=== PATIENT | male | born 1985 | race American Indian/Alaskan Native ===

== ENCOUNTER 2018-03-10 23:33 | Emergency (ER) | payer MEDICAID ==
[2018-03-11 08:09] LABS: Basophils # (Auto) 0.1 K/mm3 (0.0-0.1); Basophils % (Auto) 0.7 % (0.0-1.8); Eosinophils # (Auto) 0.2 K/mm3 (0.0-0.4); Hematocrit 47.6 % (35.5-45.6); Hemoglobin 15.7 gm/dl (11.8-15.2); Lymphocytes # (Auto) 2.7 K/mm3 (1.2-5.4); Lymphocytes % (Auto) 30.3 % (13.4-35.0); Mean Corpuscular HGB Conc 33 % (32-34); Mean Corpuscular Hemoglobin 27 pg (28-32); Mean Corpuscular Volume 81 fl (84-94); Monocytes # (Auto) 0.7 K/mm3 (0.0-0.8); Monocytes % (Auto) 7.7 % (0.0-7.3); Platelet Count 171 K/mm3 (140-440); Red Blood Count 5.86 M/mm3 (3.65-5.03)
[2018-03-11 08:33] LABS: BUN/Creatinine Ratio 13; Blood Urea Nitrogen 13 mg/dL (9-20); Calcium 9.5 mg/dL (8.4-10.2); Hemolysis Index 16
[2018-03-11] MEDS ORDERED: NACL 0.9% 1000 ML 1,000 ML IV ONE (11:38)
[2018-03-11] MEDS ORDERED: TORADOL IV ONE (11:38)
[2018-03-11 12:47] LABS: Amphetamine Screen,Urine PRESUMPTIVE NEGATIVE; Benzodiazepines Screen,Urine PRESUMPTIVE NEGATIVE; Bilirubin,Urine NEG (Negative); Blood,Urine NEG (Negative); Cannabinoid Screen,Urine PRESUMPTIVE NEGATIVE; Cocaine Screen,Urine PRESUMPTIVE NEGATIVE; Color,Urine Yellow (Yellow); Methadone Screen,Urine PRESUMPTIVE NEGATIVE; Mucus,Urine FEW /HPF; Opiate Screen,Urine PRESUMPTIVE NEGATIVE; Protein,Urine <15 mg/dL mg/dL (Negative); Urobilinogen,Urine < 2.0 mg/dL (<2.0)
--- NOTE | 2018-03-11 12:53 | Emergency Department Report ---
HPI - General Chief Complaint: Psych Time Seen by Provider: 03/11/18 11:12 - HPI HPI: The patient is a 32-year-old male who presents for evaluation of mental health. The patient reports recurrence of auditory hallucinations last night, mild in severity, improved from rest/sleep. He also complained of mild cramping suprapubic pain one day ago, now resolved. He states that his hallucinations resolve prior to my interview. The patient denies fever, headache, chest pain, dyspnea, vomiting, diarrhea, dysuria, hematuria, penile discharge or drainage, unexplained weight loss or weight gain, heat or cold intolerance, skin, hair, or nail changes, neuro deficits, homicidal ideations, suicidal ideations, or visual hallucinations. ED Past Medical Hx - Past Medical History Hx Psychiatric Treatment: Yes (Schizophrenia) - Surgical History Past Surgical History?: No - Social History Smoking Status: Never Smoker Substance Use Type: Alcohol - Medications Home Medications: Home Medications Medication Instructions Recorded Confirmed Last Taken Type FLUoxetine [Prozac] 10 mg PO QDAY 08/20/13 11/18/15 11/17/15 History [place] Carbonate 300 mg PO HS 08/20/13 11/18/15 11/17/15 History lamoTRIgine [Lamictal] 25 mg PO HS 08/20/13 11/18/15 11/17/15 History risperiDONE [Risperdal] 2 mg PO BID 08/20/13 11/18/15 11/17/15 History Ibuprofen [Motrin] 600 mg PO Q8H PRN #30 tablet 03/11/18 Unknown Rx ED Review of Systems ROS: Stated complaint: MH Other details as noted in HPI Constitutional: denies: fever ENT: denies: throat or neck pain Respiratory: denies: cough, shortness of breath Cardiovascular: denies: chest pain Endocrine: denies unexplained weight loss or gain Gastrointestinal: reports abdominal pain, nausea Genitourinary: denies: dysuria Musculoskeletal: denies: leg swelling Skin: denies: rash Neurological: denies: headache Hematological/Lymphatic: denies: easy bleeding or easy bruising Psych: denies sadness or hopelessness Physical Exam - Physical Exam Vital Signs: Vital Signs 03/11/18 07:48 Temperature 97.9 F Pulse Rate 101 H Respiratory 18 Rate Blood Pressure 162/87 O2 Sat by Pulse 97 Oximetry Physical Exam: General: well-nourished, well-developed, no acute distress Head: Normocephalic, atraumatic Eyes: normal sclera ENT: Mucous membranes are pale and dry Neck: No neck stiffness, no cervical adenopathy Respiratory: Breath sounds equal bilaterally, no wheezing, rales, or rhonchi Cardio: S1 and S2 present, no murmurs, rubs, gallops, capillary refill is delayed Abdomen: Normoactive bowel sounds, soft abdomen, no rigidity, no guarding or rebound tenderness Chest WALL/Back: No tenderness to palpation of the chest wall, no CVA tenderness with percussion Musc: No pitting edema Skin: No rash Neuro: no facial drooping, normal speech Psych: Normal affect, depressed mood, normal insight and behavior, no hallucinations, no suicidal or homicidal ideations ED Course Vital Signs 03/11/18 07:48 Temperature 97.9 F Pulse Rate 101 H Respiratory 18 Rate Blood Pressure 162/87 O2 Sat by Pulse 97 Oximetry ED Medical Decision Making - Lab Data Result diagrams: 03/11/18 07:56 03/11/18 07:56 - Medical Decision Making The patient was seen and examined by myself. The patient is placed on a monitor and storage bin tender and continuous pulse ox. On initial evaluation, the patient was found to be in no distress. Labs are obtained. The patient given pain medicine , and 1 L normal saline fluid was regimen of his dehydration. Lab results are grossly unremarkable. The patient is medically clear. Mental health is consulted. Mental health evaluates the patient and agrees that the patient is negative for findings concerning of acute psychosis or risk of harm to himself or others. Critical care attestation.: If time is entered above; I have spent that time in minutes in the direct care of this critically ill patient, excluding procedure time. ED Disposition Clinical Impression: Mood disorder, Dehydration, Acute suprapubic pain Disposition: DC-01 TO HOME OR SELFCARE Is pt being admited?: No Does the pt Need Aspirin: No Condition: Stable Instructions: Acute Abdominal Pain (ED), Dehydration (ED), Mood Disorders (ED) Referrals: PRIMARY CARE, [Primary Care Provider] - 3-5 Days [facility] [Outside] - 3-[address] [facility] [Outside] - 3-5 Days Time of Disposition: 12:48
[2018-03-11 13:14] VITALS: BP 117/64
== END 2018-03-11 13:16 | disposition home or self-care (01) ==
LOC: ED 23:33
DX: F39 Unspecified mood [affective] disorder (principal); E86.0 Dehydration; R10.30 Lower abdominal pain, unspecified; F20.9 Schizophrenia, unspecified; Z79.899 Other long term (current) drug therapy
CPT/HCPCS: 36415; 80048; 80307; 81001; 85025; 96361; 96374; 99284; G0480; J1885; J7030; 80320

== ENCOUNTER 2019-01-25 18:32 | Emergency (ER) | payer MEDICAID ==
[2019-01-25 18:37] VITALS: BP 136/77
--- NOTE | 2019-01-25 18:52 | Emergency Department Report ---
Chief Complaint: Upper Respiratory Infection Stated Complaint: KODI Time Seen by Provider: 01/25/19 18:48 - HPI History of Present Illness: pt presents with SOB two months he has associated cough, chest congestion, nasal congestion no fever no sick contacts he is a current every day smoker PMHx of schizophrenia, takes medication pt was seen in Dec in the ED for same sx has not been taking any OTC medications because he states his "acid reflux is bad" - Exam Vital Signs: Vital Signs 01/25/19 18:36 Temperature 97.8 F Pulse Rate 101 H Respiratory 20 Rate Blood Pressure 136/77 [Right] O2 Sat by Pulse 97 Oximetry MSE screening note: Focused history and physical exam performed. Due to findings the following was ordered: CXR ED Disposition for MSE Condition: Stable
--- NOTE | 2019-01-25 20:04 | XRay Report ---
PROCEDURE: XR CHEST ROUTINE 2V TECHNIQUE: PA and lateral views of the chest. HISTORY: cough, smoker COMPARISONS: None FINDINGS: Lines, tubes, and devices: N/A Lungs and pleura: Trachea is normal in position. Lungs are clear of infiltrate, pleural effusion, vas cular congestion, or pneumothorax. Cardiomediastinal silhouette: Cardiac and mediastinal silhouettes are unremarkable. Other: Bony structures are intact. IMPRESSION: No acute cardiopulmonary process seen. . This document is electronically signed by Madhavi Tripp MD., January 25 2019 08:02:14 PM ET
[2019-01-25] MEDS ORDERED: IBUPROFEN PO ONE (22:00)
[2019-01-25] MEDS ORDERED: AUGMENTIN 875 MG PO ONE (22:00)
[2019-01-25] MEDS ORDERED: DECADRON IM ONE (22:00)
--- NOTE | 2019-01-25 22:10 | Emergency Department Report ---
- General Chief Complaint: Upper Respiratory Infection Stated Complaint: KODI Time Seen by Provider: 01/25/19 18:48 Source: patient, EMS Mode of arrival: Ambulatory Limitations: No Limitations - History of Present Illness Initial Comments: pt presents with SOB two months he has associated cough, chest congestion, nasal congestion no fever no sick contacts he is a current every day smoker PMHx of schizophrenia, takes medication pt was seen in Dec in the ED for same sx has not been taking any OTC medications because he states his "acid reflux is bad" MD Complaint: fever, cough, sore throat, rhinorrhea, nasal congestion, sinus pain Onset/Timin -: days(s) Severity: moderate Severity scale (0 -10): 5 Consistency: constant Improves With: nothing Worsens With: activity Context: sick contacts Associated Symptoms: fever, chills, rhinorrhea, nasal congestion, sore throat, cough Treatments Prior to Arrival: none - Related Data Home Medications Medication Instructions Recorded Confirmed Last Taken FLUoxetine [Prozac] 10 mg PO QDAY 08/20/13 11/18/15 11/17/15 [place] Carbonate 300 mg PO HS 08/20/13 11/18/15 11/17/15 lamoTRIgine [Lamictal] 25 mg PO HS 08/20/13 11/18/15 11/17/15 risperiDONE [Risperdal] 2 mg PO BID 08/20/13 11/18/15 11/17/15 Previous Rx's Medication Instructions Recorded Last Taken Type Ibuprofen [Motrin] 600 mg PO Q8H PRN #30 tablet 03/11/18 Unknown Rx Amoxicillin [Amoxicillin TAB] 875 mg PO BID #14 tablet 12/25/18 Unknown Rx predniSONE [Prednisone] 50 mg PO QAM #5 tablet 12/25/18 Unknown Rx ALBUTEROL Inhaler(NF) [VENTOLIN 2 puff IH Q4H PRN #1 inha 01/25/19 Unknown Rx Inhaler(NF)] Amoxicillin/Potassium Clav 1 each PO BID 10 Days #20 tablet 01/25/19 Unknown Rx [Augmentin 875-125 Tablet] Benzocaine/Menth/Cetylpyrd 1 each MM Q2H PRN #3 packet 01/25/19 Unknown Rx [Cepacol X Strength] Fluticasone [Flonase] 1 spray NS QDAY #1 bottle 01/25/19 Unknown Rx Ibuprofen 800 mg PO TID PRN #30 tablet 01/25/19 Unknown Rx diphenhydrAMINE [Benadryl CAP] 25 mg PO Q6HR PRN #30 capsule 01/25/19 Unknown Rx Allergies Allergy/AdvReac Type Severity Reaction Status Date / Time No Known Allergies Allergy Verified 01/25/19 18:32 ED Review of Systems ROS: Stated complaint: KODI Other details as noted in HPI Constitutional: chills, fever, malaise ENT: ear pain, throat pain, congestion Respiratory: cough, wheezing. denies: shortness of breath Cardiovascular: denies: chest pain, palpitations Endocrine: no symptoms reported Gastrointestinal: denies: abdominal pain, nausea, diarrhea Genitourinary: denies: urgency, dysuria Musculoskeletal: denies: back pain, joint swelling, arthralgia Skin: denies: rash, lesions Neurological: denies: headache, weakness, paresthesias Psychiatric: denies: anxiety, depression Hematological/Lymphatic: denies: easy bleeding, easy bruising ED Past Medical Hx - Past Medical History Hx Psychiatric Treatment: Yes (Schizophrenia, Bipolar) - Surgical History Past Surgical History?: No - Social History Smoking Status: Current Every Day Smoker Substance Use Type: Alcohol - Medications Home Medications: Home Medications Medication Instructions Recorded Confirmed Last Taken Type FLUoxetine [Prozac] 10 mg PO QDAY 08/20/13 11/18/15 11/17/15 History [place] Carbonate 300 mg PO HS 08/20/13 11/18/15 11/17/15 History lamoTRIgine [Lamictal] 25 mg PO HS 08/20/13 11/18/15 11/17/15 History risperiDONE [Risperdal] 2 mg PO BID 08/20/13 11/18/15 11/17/15 History Ibuprofen [Motrin] 600 mg PO Q8H PRN #30 tablet 03/11/18 Unknown Rx Amoxicillin [Amoxicillin TAB] 875 mg PO BID #14 tablet 12/25/18 Unknown Rx predniSONE [Prednisone] 50 mg PO QAM #5 tablet 12/25/18 Unknown Rx ALBUTEROL Inhaler(NF) [VENTOLIN 2 puff IH Q4H PRN #1 inha 01/25/19 Unknown Rx Inhaler(NF)] Amoxicillin/Potassium Clav 1 each PO BID 10 Days #20 tablet 01/25/19 Unknown Rx [Augmentin 875-125 Tablet] Benzocaine/Menth/Cetylpyrd 1 each MM Q2H PRN #3 packet 01/25/19 Unknown Rx [Cepacol X Strength] Fluticasone [Flonase] 1 spray NS QDAY #1 bottle 01/25/19 Unknown Rx Ibuprofen 800 mg PO TID PRN #30 tablet 01/25/19 Unknown Rx diphenhydrAMINE [Benadryl CAP] 25 mg PO Q6HR PRN #30 capsule 01/25/19 Unknown Rx ED Physical Exam - General Limitations: No Limitations General appearance: alert, in no apparent distress - Head Head exam: Present: atraumatic, normocephalic - Eye Eye exam: Present: normal appearance, PERRL, EOMI Pupils: Present: normal accommodation - Expanded ENT Exam Expanded Ear exam: Present: normal external inspection Mouth exam: Present: normal external inspection. Absent: trismus Throat exam: Positive: tonsillar erythema, tonsillomegaly, tonsillar exudate, other (uvula midline mild white exudate no lesions no stridor no wheezing ). Negative: R peritonsillar mass, L peritonsillar mass - Neck Neck exam: Present: normal inspection, full ROM, lymphadenopathy. Absent: tenderness, meningismus, thyromegaly - Expanded Neck Exam Expanded Neck exam: Absent: tenderness, midline deformity, anterior neck swelling, thy roid mass, carotid bruit, tracheal deviation - Respiratory Respiratory exam: Present: normal lung sounds bilaterally, chest wall tenderness. Absent: respiratory distress, wheezes, stridor - Cardiovascular Cardiovascular Exam: Present: regular rate, normal rhythm, normal heart sounds. Absent: systolic murmur, diastolic murmur, rubs, gallop - GI/Abdominal GI/Abdominal exam: Present: soft, normal bowel sounds. Absent: tenderness, rebound, bruit, hernia - Rectal Rectal exam: Present: deferred - exam: Present: normal inspection - Extremities Exam Extremities exam: Present: normal inspection - Back Exam Back exam: Present: normal inspection, full ROM. Absent: tenderness, CVA tenderness (R), CVA tenderness (L), muscle spasm, rash noted - Neurological Exam Neurological exam: Present: alert, oriented X3, CN II-XII intact, normal gait, reflexes normal. Absent: motor sensory deficit - Psychiatric Psychiatric exam: Present: normal affect, normal mood - Skin Skin exam: Present: warm, dry, intact, normal color. Absent: rash ED Course Vital Signs 01/25/19 01/25/19 18:36 18:47 Temperature 97.8 F 97.8 F Pulse Rate 101 H 101 H Respiratory 20 20 Rate Blood Pressure 136/77 Blood Pressure 136/77 [Right] O2 Sat by Pulse 97 97 Oximetry ED Medical Decision Making - Radiology Data Radiology results: report reviewed, image reviewed normal cxr no infiltarates no opacities - Medical Decision Making this is Sinusitis phayrngitis plan Augment, ibuprofen, cepacol, Flonase follow up with pcp pin 2-3 days given referral to [facility] pt verbalizeda agreement and understanding of same. Critical care attestation.: If time is entered above; I have spent that time in minutes in the direct care of this critically ill patient, excluding procedure time. ED Disposition Clinical Impression: URI, acute Sinusitis Qualifiers: Sinusitis location: maxillary Chronicity: acute Recurrence: non-recurrent Qualified Code(s): J01.00 - Acute maxillary sinusitis, unspecified Disposition: TO HOME OR SELFCARE Is pt being admited?: No Does the pt Need Aspirin: No Condition: Stable Instructions: Sinusitis (ED), Upper Respiratory Infection (ED) Prescriptions: Amoxicillin/Potassium Clav [Augmentin 875-125 Tablet] 1 each PO BID 10 Days #20 tablet diphenhydrAMINE [Benadryl CAP] 25 mg PO Q6HR PRN #30 capsule PRN Reason: sinus congestion Benzocaine/Menth/Cetylpyrd [Cepacol X Strength] 1 each MM Q2H PRN #3 packet PRN Reason: Throat Pain Fluticasone [Flonase] 1 spray NS QDAY #1 bottle Ibuprofen 800 mg PO TID PRN #30 tablet PRN Reason: pain ALBUTEROL Inhaler(NF) [VENTOLIN Inhaler(NF)] 2 puff IH Q4H PRN #1 inha PRN Reason: shortness of breath wheezing Referrals: PRIMARY CARE, [Primary Care Provider] - 3-5 Days [facility] [Outside] - 3-5 Days Forms: Work/School Release Form(ED) Time of Disposition: 22:15
== END 2019-01-25 22:35 | disposition home or self-care (01) ==
LOC: ED 18:32
DX: J01.00 Acute maxillary sinusitis, unspecified (principal); F17.200 Nicotine dependence, unspecified, uncomplicated; F31.9 Bipolar disorder, unspecified; F20.9 Schizophrenia, unspecified; Z79.899 Other long term (current) drug therapy
CPT/HCPCS: 71046; 96372; 99284; J1100

== ENCOUNTER 2019-02-07 20:04 | Emergency (ER) | payer MEDICAID ==
[2019-02-07 22:44] VITALS: BP 146/84
--- NOTE | 2019-02-07 23:27 | XRay Report ---
PROCEDURE: XR CHEST ROUTINE 2V TECHNIQUE: PA and lateral chest radiographs were obtained. HISTORY: KODI COMPARISONS: None. FINDINGS: Heart: Normal. Mediastinum/Vessels: Normal. Lungs/Pleural space: Normal. Bony thorax: No acute osseous abnormality. IMPRESSION: Normal examination. This document is electronically signed by Piedad Hedrick DO., February 07 2019 11:25:09 PM ET
--- NOTE | 2019-02-08 01:09 | Emergency Department Report ---
HPI - General Chief Complaint: Dyspnea/Respdistress Time Seen by Provider: 02/08/19 01:05 - HPI HPI: 33-year-old -Japanese male presents to the emergency department with a complaint of a 3 month history of some chest congestion. Specifically the p fatmata says that he has mucus in his throat that he has difficulty getting out. He was here about 2 weeks ago and was placed on an inhaler, some antibiotics, Flonase and cough drops. He says that he use that with some improvement but the symptoms returned. He says that he has a primary care physician and that he has seen them. He was told to just take the medications prescribed by this emergen cy department. He is a tobacco smoker but denies any illicit drug use. ED Past Medical Hx - Past Medical History Previous Medical History?: Yes Hx Psychiatric Treatment: Yes (Schizophrenia, Bipolar) - Surgical History Past Surgical History?: No - Social History Smoking Status: Current Every Day Smoker Substance Use Type: None - Medications Home Medications: Home Medications Medication Instructions Recorded Confirmed Last Taken Type FLUoxetine [Prozac] 10 mg PO QDAY 08/20/13 11/18/15 11/17/15 History [place] Carbonate 300 mg PO HS 08/20/13 11/18/15 11/17/15 History lamoTRIgine [Lamictal] 25 mg PO HS 08/20/13 11/18/15 11/17/15 History risperiDONE [Risperdal] 2 mg PO BID 08/20/13 11/18/15 11/17/15 History Ibuprofen [Motrin] 600 mg PO Q8H PRN #30 tablet 03/11/18 Unknown Rx Amoxicillin [Amoxicillin TAB] 875 mg PO BID #14 tablet 12/25/18 Unknown Rx predniSONE [Prednisone] 50 mg PO QAM #5 tablet 12/25/18 Unknown Rx Amoxicillin/Potassium Clav 1 each PO BID 10 Days #20 tablet 01/25/19 Unknown Rx [Augmentin 875-125 Tablet] Ibuprofen 800 mg PO TID PRN #30 tablet 01/25/19 Unknown Rx diphenhydrAMINE [Benadryl CAP] 25 mg PO Q6HR PRN #30 capsule 01/25/19 Unknown Rx ALBUTEROL Inhaler(NF) [VENTOLIN 2 puff IH Q4H PRN #1 inha 02/08/19 Unknown Rx Inhaler(NF)] Benzocaine/Mentho [Cepacol X 1 each MM Q2H PRN #3 packet 02/08/19 Unknown Rx Strength] Fluticasone [Flonase] 1 spray NS QDAY #1 bottle 02/08/19 Unknown Rx ED Review of Systems ROS: Stated complaint: KODI Other details as noted in HPI Comment: All other systems reviewed and negative Constitutional: denies: chills, fever Eyes: denies: eye pain, vision change ENT: congestion. denies: ear pain, throat pain Respiratory: cough. denies: orthopnea Cardiovascular: denies: chest pain, edema Gastrointestinal: denies: abdominal pain, vomiting Genitourinary: denies: dysuria, discharge Musculoskeletal: denies: back pain, arthralgia Skin: denies: rash, lesions Neurological: denies: headache, weakness Physical Exam - Physical Exam Vital Signs: Vital Signs 02/07/19 22:41 Temperature 97.9 F Pulse Rate 94 H Respiratory 16 Rate Blood Pressure 146/84 O2 Sat by Pulse 97 Oximetry Physical Exam: GENERAL: The patient is well-developed well-nourished. HEENT: Normocephalic. Atraumatic. Patient has moist mucous membranes. Boggy nasal mucosa. EYES: Extraocular motions are intact. Pupils are equal and reactive to light bilaterally. NECK: Supple. Trachea is midline. CHEST/LUNGS: Clear to auscultation. There is no respiratory distress noted. HEART/CARDIOVASCULAR: Regular. There is no tachycardia. There is no obvious murmur. ABDOMEN: There is no abdominal distention. SKIN: Skin is warm and dry. NEURO: The patient is awake, alert, and oriented. The patient is cooperative. The patient has no focal neurologic deficits. The patient has normal speech. MUSCULOSKELETAL: There is no tenderness or deformity. There is no evidence of acute injury. ED Course Vital Signs 02/07/19 22:41 Temperature 97.9 F Pulse Rate 94 H Respiratory 16 Rate Blood Pressure 146/84 O2 Sat by Pulse 97 Oximetry ED Medical Decision Making - Radiology Data Radiology results: image reviewed interpreted by me: Chest x-ray does not show any pneumothorax, pleural effusion, pneumonia or obvious focal consolidation. - Medical Decision Making Patient presents to the emergency department with a continuation of some head and chest congestion, mucus in the throat, and occasional cough. Vital signs stable including being afebrile. Last time the patient was here he was treated for a sinusitis and URI. He may still have symptoms of the URI but they could also be secondary to environmental allergies. Heart and lungs sounds are normal to auscultation. He has good follow-up with primary care. His chest x-ray did not show any pneumonia, pleural effusions, pneumothorax, focal consolidation, or any other acute process. Patient will be given another prescription for an albuterol inhaler, Flonase and the cough lozenges. Instructed to follow up with primary care and return to the emergency Department with any worsening of his symptoms or any acute distress. - Differential Diagnosis URI, sinusitis, pneumonia Critical Care Time: No Critical care attestation.: If time is entered above; I have spent that time in minutes in the direct care of this critically ill patient, excluding procedure time. ED Disposition Clinical Impression: Chest congestion, URI, acute Disposition: DC- TO HOME OR SELFCARE Is pt being admited?: No Condition: Stable Instructions: Upper Respiratory Infection (ED), Viral Syndrome (ED) Additional Instructions: Please follow-up with your primary care physician in the next few days. Return to the emergency Department with any worsening of symptoms or any acute distress. Prescriptions: Benzocaine/Mentho [Cepacol X Strength] 1 each MM Q2H PRN #3 packet PRN Reason: Throat Pain Fluticasone [Flonase] 1 spray NS QDAY #1 bottle ALBUTEROL Inhaler(NF) [VENTOLIN Inhaler(NF)] 2 puff IH Q4H PRN #1 inha PRN Reason: shortness of breath wheezing Referrals: JAZZY CONTRERAS MD [Primary Care Provider] - 2-3 Days Time of Disposition: 01:08
== END 2019-02-08 01:10 | disposition home or self-care (01) ==
LOC: ED 20:04
DX: J06.9 Acute upper respiratory infection, unspecified (principal); F31.9 Bipolar disorder, unspecified; F20.9 Schizophrenia, unspecified; F17.200 Nicotine dependence, unspecified, uncomplicated
CPT/HCPCS: 71046

== ENCOUNTER 2019-02-09 11:48 | Emergency (ER) | payer MEDICAID ==
[2019-02-09 11:59] VITALS: BP 136/60
--- NOTE | 2019-02-09 12:05 | Emergency Department Report ---
Blank Doc - Documentation Documentation: 33 y o male returns to Ed cc of nasal congestion and feeling stuffed up states he was given cough drops and nasal spray no relief. denies cp,sob, throat pain needs mucinex,decongestants, ACC evaluate
--- NOTE | 2019-02-09 12:51 | Emergency Department Report ---
Minor Respiratory - HPI Chief Complaint: Upper Respiratory Infection Stated Complaint: SOB Time Seen by Provider: 02/09/19 11:56 Duration: 1 Day Severity: mild Minor Respiratory: Yes Rhinorrhea, Yes Able to Tolerate Fluids, No Sore Throat, No Ear Pain, No Cough, No Sick Contacts, No Hemoptysis, No Chest Pain, No Shortness of Breath, No Fever Other History: This is a 33-year-old male nontoxic, well nourished in appearance, no acute signs of distress presents to the ED with c/o of rhinorrhea and nasal congestion x1 day. Patient denies any cough. Patient denies any recent travels, long car, recent hospital stays. Patient denies any calf pain or calf tenderness. Patient denies any chest pain, short of breath, fever, chills, nausea, vomiting, hemoptysis, numbness, tingling, headache or stiff neck. Patient stated has seasional allergies. ED Review of Systems ROS: Stated complaint: SOB Other details as noted in HPI Constitutional: denies: chills, fever Eyes: denies: eye pain, eye discharge, vision change ENT: congestion. denies: ear pain, throat pain Respiratory: denies: cough, shortness of breath, wheezing Cardiovascular: denies: chest pain, palpitations Endocrine: no symptoms reported Gastrointestinal: denies: abdominal pain, nausea, diarrhea Genitourinary: denies: urgency, dysuria Musculoskeletal: denies: back pain, joint swelling, arthralgia Skin: denies: rash, lesions Neurological: denies: headache, weakness, paresthesias Psychiatric: denies: anxiety, depression Hematological/Lymphatic: denies: easy bleeding, easy bruising ED Past Medical Hx - Past Medical History Previous Medical History?: Yes Hx Psychiatric Treatment: Yes (Schizophrenia, Bipolar) - Social History Smoking Status: Current Every Day Smoker - Medications Home Medications: Home Medications Medication Instructions Recorded Confirmed Last Taken Type FLUoxetine [Prozac] 10 mg PO QDAY 08/20/13 11/18/15 11/17/15 History [place] Carbonate 300 mg PO HS 08/20/13 11/18/15 11/17/15 History lamoTRIgine [Lamictal] 25 mg PO HS 08/20/13 11/18/15 11/17/15 History risperiDONE [Risperdal] 2 mg PO BID 08/20/13 11/18/15 11/17/15 History Ibuprofen [Motrin] 600 mg PO Q8H PRN #30 tablet 03/11/18 Unknown Rx Amoxicillin [Amoxicillin TAB] 875 mg PO BID #14 tablet 12/25/18 Unknown Rx predniSONE [Prednisone] 50 mg PO QAM #5 tablet 12/25/18 Unknown Rx Amoxicillin/Potassium Clav 1 each PO BID 10 Days #20 tablet 01/25/19 Unknown Rx [Augmentin 875-125 Tablet] Ibuprofen 800 mg PO TID PRN #30 tablet 01/25/19 Unknown Rx diphenhydrAMINE [Benadryl CAP] 25 mg PO Q6HR PRN #30 capsule 01/25/19 Unknown Rx ALBUTEROL Inhaler(NF) [VENTOLIN 2 puff IH Q4H PRN #1 inha 02/08/19 Unknown Rx Inhaler(NF)] Benzocaine/Mentho [Cepacol X 1 each MM Q2H PRN #3 packet 02/08/19 Unknown Rx Strength] Fluticasone [Flonase] 1 spray NS QDAY #1 bottle 02/08/19 Unknown Rx Container,Empty [Nasal [place] 1 each MC DAILY #1 bottle 02/09/19 Unknown Rx Bottle] Fluticasone [Flonase] 1 spray NS QDAY #1 bottle 02/09/19 Unknown Rx Loratadine [Claritin] 10 mg PO DAILY #30 tablet 02/09/19 Unknown Rx Minor Respiratory Exam - Exam General: Vital signs noted. No distress. Alert and acting appropriately. HEENT: Yes Moist Mucous Membranes, Yes Rhinorrhea, No Pharyngeal Erythema, No Pharyngeal Exudates, No Conjuctival Injection, No Frontal Tenderness, No Maxillary Tenderness Ear: Neither TM Bulge, Neither TM Erythema, Neither EAC Pain, Neither EAC Discharge Neck: Yes Supple, No Adenopathy Lungs: Yes Good Air Exchange, No Wheezes, No [place], No Stridor, No Cough, No Labored Respirations, No Retractions, No Use of Accessory Muscles, No Other Abnormal Lung Sounds Heart: Yes Regular, No Murmur Abdomen: Yes Normal Bowel Sounds, No Tenderness, No Peritoneal Signs Skin: No Rash, No Edema Neurologic: Alert and oriented, no deficits. Musculoskeletal: Unremarkable. ED Course Vital Signs 02/09/19 11:56 Temperature 97.4 F L Pulse Rate 81 Respiratory 18 Rate Blood Pressure 136/60 O2 Sat by Pulse 98 Oximetry - Reevaluation(s) Reevaluation #1: 02/09/19 12:48 Patient is speaking in full sentences with no signs of distress noted. Critical care attestation.: If time is entered above; I have spent that time in minutes in the direct care of this critically ill patient, excluding procedure time. ED Disposition Clinical Impression: Nasal congestion Allergic rhinitis Qualifiers: Allergic rhinitis trigger: pollen Allergic rhinitis seasonality: seasonal Qualified Code(s): J30.1 - Allergic rhinitis due to pollen Disposition: DC-01 TO HOME OR SELFCARE Is pt being admited?: No Does the pt Need Aspirin: No Condition: Stable Instructions: Allergic Rhinitis (ED) Additional Instructions: Follow-up with a primary care doctor in 3-5 days or if symptoms worsen and continue return to emergency room as soon as possible. Prescriptions: Loratadine [Claritin] 10 mg PO DAILY #30 tablet Fluticasone [Flonase] 1 spray NS QDAY #1 bottle Container,Empty [Nasal [place] Bottle] 1 each MC DAILY #1 bottle Referrals: PRIMARY CAREMD [Primary Care Provider] - 3-5 Days CHIQUITA HOOVER MD [Staff Physician] - 3-5 Days [facility]Note 3] [Outside] - 3-5 Days [facility] [Outside] - 3-5 Days Forms: Work/School Release Form(ED)
== END 2019-02-09 13:04 | disposition home or self-care (01) ==
LOC: ED 11:48
DX: J30.1 Allergic rhinitis due to pollen (principal); F20.9 Schizophrenia, unspecified; F31.9 Bipolar disorder, unspecified; F17.200 Nicotine dependence, unspecified, uncomplicated

== ENCOUNTER 2019-02-17 14:27 | Emergency (ER) | payer MEDICAID ==
--- NOTE | 2019-02-17 15:27 | Emergency Department Report ---
Blank Doc - Documentation Documentation: This is a 33-year-old male that presents with URI symptoms. This initial assessment/diagnostic orders/clinical plan/treatment(s) is/are subject to change based on patient's health status, clinical progression and re- assessment by fellow clinical providers in the ED. Further treatment and workup at subsequent clinical providers discretion. Patient/guardians urged not to elope from the ED as their condition may be serious if not clinically assessed and managed. Initial orders include: 1- Patient sent to [facility] for further evaluation and treatment 2- CXR
[2019-02-17 15:32] VITALS: BP 140/89
--- NOTE | 2019-02-17 16:59 | XRay Report ---
PROCEDURE: XR CHEST ROUTINE 2V TECHNIQUE: Frontal and lateral views of the chest HISTORY: cough COMPARISONS: 02/07/2019 FINDINGS: The cardiomediastinal silhouette is normal in appearance. The lungs are clear without focal consolidation. No pleural effusion or pneumothorax. No acute bony or soft tissue abnormality. IMPRESSION: No acute cardiopulmonary disease. This document is electronically signed by Yanely Leon MD., February 17 2019 04:57:37 PM ET
[2019-02-17] MEDS ORDERED: DECADRON IM ONE (19:28)
[2019-02-17] MEDS ORDERED: ATROVENT IH ONE (19:28)
[2019-02-17] MEDS ORDERED: PROVENTIL IH ONE (19:28)
--- NOTE | 2019-02-17 21:31 | Emergency Department Report ---
- General Chief Complaint: Upper Respiratory Infection Stated Complaint: DIFFICULTY BREATHING Time Seen by Provider: 02/17/19 15:27 Source: patient, EMS Mode of arrival: Ambulatory Limitations: No Limitations - History of Present Illness Initial Comments: This is a 33-year-old male nontoxic, well nourished in appearance, no acute signs of distress presents to the ED with c/o of productive cough, rhinorrhea, nasal congestion x2 days. Patient describes productive cough as yellow mucus production. Patient also stated has some shortness of breathe. Patient denies any recent travels, long car, recent hospital stays. Patient denies any calf pain or calf tenderness. Patient denies any chest pain, fever, chills, nausea, vomiting, hemoptysis, numbness, tingling, headache or stiff neck. Patient denies any drug allergies or significant past medical history. MD Complaint: cough, rhinorrhea, nasal congestion -: days(s) (2) Severity: mild Severity scale (0 -10): 8 Quality: aching Consistency: constant Improves With: nothing Worsens With: nothing Associated Symptoms: rhinorrhea, nasal congestion, cough, shortness of breath. denies: fever, chills, myalgias, diaphoresis, headache, sore throat, stiff neck, chest pain, abdominal pain, nausea, vomiting, diarrhea, dysuria, rash, confusion, right sweats, weight loss, epistaxis, hoarseness, ear pain Treatments Prior to Arrival: none - Related Data Home Medications Medication Instructions Recorded Confirmed Last Taken FLUoxetine [Prozac] 10 mg PO QDAY 08/20/13 11/18/15 11/17/15 [place] Carbonate 300 mg PO HS 08/20/13 11/18/15 11/17/15 lamoTRIgine [Lamictal] 25 mg PO HS 08/20/13 11/18/15 11/17/15 risperiDONE [Risperdal] 2 mg PO BID 08/20/13 11/18/15 11/17/15 Previous Rx's Medication Instructions Recorded Last Taken Type Ibuprofen [Motrin] 600 mg PO Q8H PRN #30 tablet 03/11/18 Unknown Rx Amoxicillin [Amoxicillin TAB] 875 mg PO BID #14 tablet 12/25/18 Unknown Rx predniSONE [Prednisone] 50 mg PO QAM #5 tablet 12/25/18 Unknown Rx Amoxicillin/Potassium Clav 1 each PO BID 10 Days #20 tablet 03/16/19 Unknown Rx [Augmentin 875-125 Tablet] Ibuprofen 800 mg PO TID PRN #30 tablet 01/25/19 Unknown Rx diphenhydrAMINE [Benadryl CAP] 25 mg PO Q6HR PRN #30 capsule 01/25/19 Unknown Rx ALBUTEROL Inhaler(NF) [VENTOLIN 2 puff IH Q4H PRN #1 inha 02/08/19 Unknown Rx Inhaler(NF)] Benzocaine/Mentho [Cepacol X 1 each MM Q2H PRN #3 packet 02/08/19 Unknown Rx Strength] Fluticasone [Flonase] 1 spray NS QDAY #1 bottle 02/08/19 Unknown Rx Container,Empty [Nasal [place] 1 each MC DAILY #1 bottle 02/09/19 Unknown Rx Bottle] Fluticasone [Flonase] 1 spray NS QDAY #1 bottle 02/09/19 Unknown Rx Loratadine [Claritin] 10 mg PO DAILY #30 tablet 02/09/19 Unknown Rx ALBUTEROL Inhaler(NF) [VENTOLIN 2 puff IH Q4-6H PRN #1 inha 02/17/19 Unknown Rx Inhaler(NF)] Azithromycin [Zithromax Z-BERNICE] 250 mg PO DAILY #6 tablet 02/17/19 Unknown Rx Ibuprofen [Motrin] 600 mg PO Q8H PRN #20 tablet 02/17/19 Unknown Rx Prednisone [predniSONE 10 mg 10 mg PO .TAPER #1 tab.ds.pk 02/17/19 Unknown Rx (6-Day Pack, 21 Tabs)] Allergies Allergy/AdvReac Type Severity Reaction Status Date / Time No Known Allergies Allergy Verified 01/25/19 18:32 ED Review of Systems ROS: Stated complaint: DIFFICULTY BREATHING Other details as noted in HPI Constitutional: denies: chills, fever Eyes: denies: eye pain, eye discharge, vision change ENT: congestion. denies: ear pain, throat pain Respiratory: cough, shortness of breath. denies: wheezing Cardiovascular: denies: chest pain, palpitations Endocrine: no symptoms reported Gastrointestinal: denies: abdominal pain, nausea, diarrhea Genitourinary: denies: urgency, dysuria Musculoskeletal: denies: back pain, joint swelling, arthralgia Skin: denies: rash, lesions Neurological: denies: headache, weakness, paresthesias Psychiatric: denies: anxiety, depression Hematological/Lymphatic: denies: easy bleeding, easy bruising ED Past Medical Hx - Past Medical History Previous Medical History?: Yes Hx Psychiatric Treatment: Yes (Schizophrenia, Bipolar) - Social History Smoking Status: Never Smoker Substance Use Type: None - Medications Home Medications: Home Medications Medication Instructions Recorded Confirmed Last Taken Type FLUoxetine [Prozac] 10 mg PO QDAY 08/20/13 11/18/15 11/17/15 History [place] Carbonate 300 mg PO HS 08/20/13 11/18/15 11/17/15 History lamoTRIgine [Lamictal] 25 mg PO HS 08/20/13 11/18/15 11/17/15 History risperiDONE [Risperdal] 2 mg PO BID 08/20/13 11/18/15 11/17/15 History Ibuprofen [Motrin] 600 mg PO Q8H PRN #30 tablet 03/11/18 Unknown Rx Amoxicillin [Amoxicillin TAB] 875 mg PO BID #14 tablet 12/25/18 Unknown Rx predniSONE [Prednisone] 50 mg PO QAM #5 tablet 12/25/18 Unknown Rx Amoxicillin/Potassium Clav 1 each PO BID 10 Days #20 tablet 01/25/19 Unknown Rx [Augmentin 875-125 Tablet] Ibuprofen 800 mg PO TID PRN #30 tablet 01/25/19 Unknown Rx diphenhydrAMINE [Benadryl CAP] 25 mg PO Q6HR PRN #30 capsule 01/25/19 Unknown Rx ALBUTEROL Inhaler(NF) [VENTOLIN 2 puff IH Q4H PRN #1 inha 02/08/19 Unknown Rx Inhaler(NF)] Benzocaine/Mentho [Cepacol X 1 each MM Q2H PRN #3 packet 02/08/19 Unknown Rx Strength] Fluticasone [Flonase] 1 spray NS QDAY #1 bottle 02/08/19 Unknown Rx Container,Empty [Nasal [place] 1 each MC DAILY #1 bottle 02/09/19 Unknown Rx Bottle] Fluticasone [Flonase] 1 spray NS QDAY #1 bottle 02/09/19 Unknown Rx Loratadine [Claritin] 10 mg PO DAILY #30 tablet 02/09/19 Unknown Rx ALBUTEROL Inhaler(NF) [VENTOLIN 2 puff IH Q4-6H PRN #1 inha 02/17/19 Unknown Rx Inhaler(NF)] Azithromycin [Zithromax Z-BERNICE] 250 mg PO DAILY #6 tablet 02/17/19 Unknown Rx Ibuprofen [Motrin] 600 mg PO Q8H PRN #20 tablet 02/17/19 Unknown Rx Prednisone [predniSONE 10 mg 10 mg PO .TAPER #1 tab.ds.pk 02/17/19 Unknown Rx (6-Day Pack, 21 Tabs)] ED Physical Exam - General Limitations: No Limitations General appearance: alert, in no apparent distress - Head Head exam: Present: atraumatic, normocephalic - Eye Eye exam: Present: normal appearance - Neck Neck exam: Present: normal inspection, full ROM. Absent: tenderness, meningismus, lymphadenopathy - Respiratory Respiratory exam: Present: normal lung sounds bilaterally, decreased breath sounds (bilateral upper lobes). Absent: respiratory distress, wheezes, rales, rhonchi, stridor, chest wall tenderness, accessory muscle use, prolonged expiratory - Cardiovascular Cardiovascular Exam: Present: regular rate, normal rhythm, normal heart sounds. Absent: irregular rhythm, systolic murmur, diastolic murmur, rubs, gallop - Rectal Rectal exam: Present: deferred - Extremities Exam Extremities exam: Present: normal inspection, full ROM - Back Exam Back exam: Present: normal inspection, full ROM. Absent: tenderness, CVA tenderness (R), CVA tenderness (L), muscle spasm, paraspinal tenderness, vertebral tenderness, rash noted - Neurological Exam Neurological exam: Present: alert, oriented X3 - Psychiatric Psychiatric exam: Present: normal affect, normal mood - Skin Skin exam: Present: warm, dry, intact, normal color. Absent: rash ED Course Vital Signs 02/17/19 15:31 Temperature 98 F Pulse Rate 96 H Respiratory 16 Rate Blood Pressure 140/89 O2 Sat by Pulse 95 Oximetry - Reevaluation(s) Reevaluation #1: 02/17/19 21:32 Patient is speaking in full sentences with no signs of distress noted. ED Medical Decision Making - Medical Decision Making This is a 33-year-old male that presents with bronchitis. Patient is stable and was examined by me. Chest x-ray has been obtained and dictated by radiologist with normal exam. Patient is notified of x-ray results with no questions noted. Due to patient having symptoms of upper respiratory infection and worsening I will treat patient empirically with zpak. Patient was instructed to increase hydration, rest and take Motrin for fever episodes. Patient received a breathing treatment in the ER as well as Decadron IM. Posttreatment patient eventually has resolved and subsided. Breath sounds are clear and normal. Vitals stable. Patient is nonfebrile and normal heart rate. Patient was instruct ed Follow-up with a primary care doctor in 3-5 days or if symptoms worsen and continue return to emergency room as soon as possible. At time time of discharge, the patient does not seem toxic or ill in appearance. No acute signs of distress noted. Patient agrees to discharge treatment plan of care. No further questions noted by the patient. Critical care attestation.: If time is entered above; I have spent that time in minutes in the direct care of this critically ill patient, excluding procedure time. ED Disposition Clinical Impression: Bronchitis Disposition: DC-01 TO HOME OR SELFCARE Is pt being admited?: No Does the pt Need Aspirin: No Condition: Stable Instructions: Acute Bronchitis (ED) Additional Instructions: Follow-up with a primary care doctor in 3-5 days or if symptoms worsen and continue return to emergency room as soon as possible. Prescriptions: Ibuprofen [Motrin] 600 mg PO Q8H PRN #20 tablet PRN Reason: Pain Prednisone [predniSONE 10 mg (6-Day Pack, 21 Tabs)] 10 mg PO .TAPER #1 tab.ds.pk ALBUTEROL Inhaler(NF) [VENTOLIN Inhaler(NF)] 2 puff IH Q4-6H PRN #1 inha PRN Reason: Wheezing Azithromycin [Zithromax Z-BERNICE] 250 mg PO DAILY #6 tablet Referrals: PRIMARY CAREMD [Referring] - 3-5 Days CHIQUITA HOOVER MD [Staff Physician] - 3-5 Days [facility] [Outside] - 3-5 Days [facility] [Outside] - 3-5 Days Forms: Work/School Release Form(ED)
== END 2019-02-17 21:40 | disposition home or self-care (01) ==
LOC: ED 14:27
DX: J40 Bronchitis, not specified as acute or chronic (principal)
CPT/HCPCS: 71046; 94640; 96372; 99284; J1100

== ENCOUNTER 2019-02-24 22:39 | Emergency (ER) | payer MEDICAID ==
[2019-02-24 23:20] LABS: Basophils # (Auto) 0.1 K/mm3 (0.0-0.1); Basophils % (Auto) 0.9 % (0.0-1.8); Eosinophils # (Auto) 0.7 K/mm3 (0.0-0.4); Eosinophils % (Auto) 6.1 % (0.0-4.3); Hematocrit 44.3 % (35.5-45.6); Hemoglobin 15.3 gm/dl (11.8-15.2); Lymphocytes # (Auto) 4.1 K/mm3 (1.2-5.4); Lymphocytes % (Auto) 38.2 % (13.4-35.0); Mean Corpuscular HGB Conc 35 % (32-34); Mean Corpuscular Volume 83 fl (84-94); Monocytes # (Auto) 0.6 K/mm3 (0.0-0.8); Monocytes % (Auto) 5.3 % (0.0-7.3); Platelet Count 208 K/mm3 (140-440); Red Blood Count 5.37 M/mm3 (3.65-5.03); Red Cell Distribution Width 15.2 % (13.2-15.2)
[2019-02-24 23:33] LABS: BUN/Creatinine Ratio 17; Blood Urea Nitrogen 17 mg/dL (9-20); Calcium 9.5 mg/dL (8.4-10.2); Hemolysis Index 11
--- NOTE | 2019-02-25 01:12 | XRay Report ---
PROCEDURE: XR CHEST ROUTINE 2V TECHNIQUE: PA and lateral chest radiographs were obtained. HISTORY: cough COMPARISONS: None. FINDINGS: Heart: Normal. Mediastinum/Vessels: Normal. Lungs/Pleural space: Normal. Bony thorax: No acute osseous abnormality. IMPRESSION: Normal examination. This document is electronically signed by Wilson Yoo MD., February 25 2019 01:11:16 AM ET
[2019-02-25 19:52] VITALS: BP 137/82
== END 2019-02-25 06:15 | disposition left against medical advice (07) ==
LOC: ED 22:39
DX: R06.00 Dyspnea, unspecified (principal); Z53.21 Procedure and treatment not carried out due to patient leaving prior to being seen by health care provider
CPT/HCPCS: 36415; 71046; 80048; 85025

== ENCOUNTER 2021-04-08 12:35 | Emergency (ER) | payer MEDICAID ==
--- NOTE | 2021-04-08 13:07 | Emergency Department Report ---
HPI - General Chief Complaint: Chest Pain Time Seen by Provider: 04/08/21 12:46 - HPI HPI: Room 24 The patient is a 35-year-old male present with a chief complaint of bilateral lower extremity edema. Patient states for the past 2 days he has had swelling in both of his feet. Patient also complains of shooting pain from the right lower extremity up to his right shoulder. Patient denies any preceding trauma. Patient denies history of fever or shortness of breath. Patient denies any previous episodes of lower extremity edema. ED Past Medical Hx - Past Medical History Previous Medical History?: Yes Hx Psychiatric Treatment: Yes (Schizophrenia, Bipolar) Additional medical history: protein C deficiency - Surgical History Past Surgical History?: No Additional Surgical History: Circumcision - Family History Family history: no significant - Social History Smoking Status: Current Every Day Smoker (1 pack/day) Substance Use Type: Marijuana - Medications Home Medications: Home Medications Medication Instructions Recorded Confirmed Last Taken Type FLUoxetine [Prozac] 10 mg PO QDAY 08/20/13 11/18/15 11/17/15 History [place] Carbonate 300 mg PO HS 08/20/13 11/18/15 11/17/15 History lamoTRIgine [Lamictal] 25 mg PO HS 08/20/13 11/18/15 11/17/15 History risperiDONE [Risperdal] 2 mg PO BID 08/20/13 11/18/15 11/17/15 History Ibuprofen [Motrin] 600 mg PO Q8H PRN #30 tablet 03/11/18 Unknown Rx Amoxicillin [Amoxicillin TAB] 875 mg PO BID #14 tablet 12/25/18 Unknown Rx predniSONE [Prednisone] 50 mg PO QAM #5 tablet 12/25/18 Unknown Rx Amoxicillin/Potassium Clav 1 each PO BID 10 Days #20 tablet 01/25/19 Unknown Rx [Augmentin 875-125 Tablet] Ibuprofen [Ibuprofen 800] 800 mg PO TID PRN #30 tablet 01/25/19 Unknown Rx diphenhydrAMINE [Benadryl CAP] 25 mg PO Q6HR PRN #30 capsule 01/25/19 Unknown Rx ALBUTEROL Inhaler(NF) [VENTOLIN 2 puff IH Q4H PRN #1 inha 02/08/19 Unknown Rx Inhaler(NF)] Benzocaine/Mentho [Cepacol X 1 each MM Q2H PRN #3 packet 02/08/19 Unknown Rx Strength] Fluticasone [Flonase] 1 spray NS QDAY #1 bottle 02/08/19 Unknown Rx Container,Empty [Nasal [place] 1 each MC DAILY #1 bottle 02/09/19 Unknown Rx Bottle] Fluticasone [Flonase] 1 spray NS QDAY #1 bottle 02/09/19 Unknown Rx Loratadine (Nf) [Claritin] 10 mg PO DAILY #30 tablet 02/09/19 Unknown Rx ALBUTEROL Inhaler(NF) [VENTOLIN 2 puff IH Q4-6H PRN #1 inha 02/17/19 Unknown Rx Inhaler(NF)] Azithromycin [Zithromax Z-BERNICE] 250 mg PO DAILY #6 tablet 02/17/19 Unknown Rx Ibuprofen [Motrin] 600 mg PO Q8H PRN #20 tablet 02/17/19 Unknown Rx Prednisone [predniSONE 10 mg 10 mg PO .TAPER #1 tab.ds.pk 02/17/19 Unknown Rx (6-Day Pack, 21 Tabs)] Furosemide [Lasix] 20 mg PO QDAY #7 tablet 04/08/21 Unknown Rx ED Review of Systems ROS: Stated complaint: RT LEG PAIN/BILATERAL SWELLING Other details as noted in HPI Constitutional: denies: fever Eyes: denies: eye pain ENT: denies: throat pain Respiratory: denies: shortness of breath Cardiovascular: denies: chest pain Endocrine: no symptoms reported Gastrointestinal: denies: abdominal pain Genitourinary: denies: dysuria Musculoskeletal: myalgia Neurological: denies: headache Physical Exam - Physical Exam Vital Signs: Vital Signs 04/08/21 13:01 Pulse Rate 81 Physical Exam: GENERAL: The patient is well-developed well-nourished male lying on stretcher resting comfortably not appearing to be in acute distress. [] HEENT: Normocephalic. Atraumatic. Extraocular motions are intact. Patient has moist mucous membranes. NECK: Supple. Trachea midline CHEST/LUNGS: Clear to auscultation. There is no respiratory distress noted. HEART/CARDIOVASCULAR: Regular. There is no tachycardia. There is no gallop rub or murmur. 2+ DP bilaterally ABDOMEN: Abdomen is soft, nontender. Patient has normal bowel sounds. There is no abdominal distention. SKIN: There is no rash. There is 1-2+ bilateral lower extremity pitting edema. There is no diaphoresis. NEURO: The patient is awake, alert, and oriented. The patient is cooperative. The patient has no focal neurologic deficits. The patient has normal speech MUSCULOSKELETAL: There is no evidence of acute injury. ED Course Vital Signs 04/08/21 13:01 Pulse Rate 81 ED Medical Decision Making - Lab Data Result diagrams: 04/08/21 13:15 04/08/21 13:15 Laboratory Tests 04/08/21 04/08/21 13:15 13:15 WBC 7.9 RBC 4.96 Hgb 13.5 Hct 40.0 MCV 81 L MCH 27 L MCHC 34 RDW 15.6 H Plt Count 193 Lymph % (Auto) 35.1 H [place] % (Auto) 5.6 Eos % (Auto) 2.5 Baso % (Auto) 0.9 Lymph # (Auto) 2.8 [place] # (Auto) 0.4 Eos # (Auto) 0.2 Baso # (Auto) 0.1 Seg Neutrophils % 55.9 Seg Neutrophils # 4.4 Sodium 137 Potassium 3.7 Chloride 102.9 Carbon Dioxide 27 Anion Gap 11 BUN 10 Creatinine 0.9 Estimated GFR > 60 BUN/Creatinine Ratio 11 Glucose 153 H Calcium 9.1 Total Bilirubin 0.50 AST 28 ALT 34 Alkaline Phosphatase 57 NT-Pro-B Natriuret Pep 6.23 Total Protein 6.3 Albumin 4.0 Albumin/Globulin Ratio 1.7 - EKG Data -: EKG Interpreted by Ok EKG shows normal: sinus rhythm Rate: normal - EKG Data When compared to previous EKG there are: previous EKG unavailable Interpretation: nonspecific ST-T wave rossana - Radiology Data Radiology results: report reviewed (Bilateral lower extremity Dopplers), image reviewed (Bilateral lower extremity Dopplers) [facility] [address] [place] [address] Vascular Lab Report Signed Patient: MIHIR ASHRAF MR#: [id number] : 1985 Acct:[id number] Age/Sex: 35 / M ADM Date: 04/08/21 Loc: ED Attending Dr: Ordering Physician: DOMENICO COOPER MD Date of Service: 04/08/21 Procedure(s): VL venous duplex LE BILAT Accession Number(s): [id number] cc: DOMENICO COOPER MD DUPLEX DOPPLER LOWER EXTREMITY VEINS, BILATERAL INDICATION / CLINICAL INFORMATION: Pain and swelling. TECHNIQUE: Duplex doppler imaging was performed through the veins of both lower extremities using venous compression and other maneuvers. COMPARISON: None available. FINDINGS: RIGHT COMMON FEMORAL VEIN: Negative. RIGHT FEMORAL VEIN: Negative. RIGHT POPLITEAL VEIN: Negative. RIGHT CALF VEINS: Negative. LEFT COMMON FEMORAL VEIN: Negative. LEFT FEMORAL VEIN: Negative. LEFT POPLITEAL VEIN: Negative. LEFT CALF VEINS: Negative. ADDITIONAL FINDINGS: None. IMPRESSION: 1. No sonographic evidence for DVT in either lower extremity. Signer Name: Ottoniel Page MD Signed: 04/08/2021 2:16 PM Workstation Name: [id number] Transcribed By: SS Dictated By: Ottoniel Page MD Electronically Authenticated By: Ottoniel Page MD Signed Date/Time: 04/08/211415 DD/ 14 TD/TT: Print Cancel - Differential Diagnosis Peripheral edema, CHF, hypoalbuminemia, renal insufficiency, DVTs Critical care attestation.: If time is entered above; I have spent that time in minutes in the direct care of this critically ill patient, excluding procedure time. ED Disposition Clinical Impression: Peripheral edema Disposition: DC-01 TO HOME OR SELFCARE Is pt being admited?: No Does the pt Need Aspirin: No Condition: Stable Instructions: Peripheral Edema Additional Instructions: Return to the emergency department should you develop worsening symptoms, inab ility to tolerate food or liquids, high fever or any other concerns Prescriptions: Furosemide [Lasix] 20 mg PO QDAY #7 tablet Referrals: [facility] [Provider Group] - 3-5 Days Time of Disposition: 14:43
[2021-04-08 13:57] LABS: Basophils # (Auto) 0.1 K/mm3 (0.0-0.1); Basophils % (Auto) 0.9 % (0.0-1.8); Eosinophils # (Auto) 0.2 K/mm3 (0.0-0.4); Eosinophils % (Auto) 2.5 % (0.0-4.3); Hemoglobin 13.5 gm/dl (11.8-15.2); Lymphocytes # (Auto) 2.8 K/mm3 (1.2-5.4); Lymphocytes % (Auto) 35.1 % (13.4-35.0); Mean Corpuscular HGB Conc 34 % (32-34); Mean Corpuscular Volume 81 fl (84-94); Monocytes # (Auto) 0.4 K/mm3 (0.0-0.8); Monocytes % (Auto) 5.6 % (0.0-7.3); Platelet Count 193 K/mm3 (140-440); Red Blood Count 4.96 M/mm3 (3.65-5.03); Red Cell Distribution Width 15.6 % (13.2-15.2)
--- NOTE | 2021-04-08 14:21 | Vascular Lab Report ---
DUPLEX DOPPLER LOWER EXTREMITY VEINS, BILATERAL INDICATION / CLINICAL INFORMATION: Pain and swelling. TECHNIQUE: Duplex doppler imaging was performed through the veins of both lower extremities using david ous compression and other maneuvers. COMPARISON: None available. FINDINGS: RIGHT COMMON FEMORAL VEIN: Negative. RIGHT FEMORAL VEIN: Negative. RIGHT POPLITEAL VEIN: Negative. RIGHT CALF VEINS: Negative. LEFT COMMON FEMORAL VEIN: Negative. LEFT FEMORAL VEIN: Negative. LEFT POPLITEAL VEIN: Negative. LEFT CALF VEINS: Negative. ADDITIONAL FINDINGS: None. IMPRESSION: 1. No sonographic evidence for DVT in either lower extremity. Signer Name: Ottoniel Page MD Signed: 04/08/2021 2:16 PM Workstation Name: [id number]
[2021-04-08 14:25] LABS: Alanine Aminotransferase 34 units/L (7-56); BUN/Creatinine Ratio 11; Blood Urea Nitrogen 10 mg/dL (9-20); Calcium 9.1 mg/dL (8.4-10.2); Hemolysis Index 5
[2021-04-08 14:55] VITALS: BP 128/66
--- NOTE | 2021-04-11 21:28 | Electrocardiograph Report ---
[facility] Test Date: 2021-04-08 Test Time: 13:09:27 Pat Name: MIHIR ASHRAF Department: Room: Gender: M [place] Gatherer: CLLisbeth : 1985 Requested By: DOMENICO COOPER Order Number: [id number] Reading MD: Chuyita Cheung Measurements Intervals [place] Rate: 76 P: 26 CO: 172 QRS: 19 QRSD: 97 T: 22 QT: 339 QTc: 381 Interpretive Statements Sinus rhythm Incomplete right bundle branch block No previous ECG available for comparison Electronically Signed On 04-11-2021 21:27:58 EDT by Chuyita Cheung
== END 2021-04-08 15:18 | disposition home or self-care (01) ==
LOC: ED 12:35
DX: R60.9 Edema, unspecified (principal); F20.9 Schizophrenia, unspecified; F31.9 Bipolar disorder, unspecified; F17.200 Nicotine dependence, unspecified, uncomplicated; Z98.890 Other specified postprocedural states; Z79.1 Long term (current) use of non-steroidal anti-inflammatories (NSAID); Z79.2 Long term (current) use of antibiotics; Z79.899 Other long term (current) drug therapy
CPT/HCPCS: 36415; 80053; 83880; 85025; 93005; 93970

== ENCOUNTER 2021-06-10 09:21 | Emergency (ER) | payer MEDICAID ==
[2021-06-10 10:33] VITALS: BP 120/72
--- NOTE | 2021-06-10 12:50 | Emergency Department Report ---
ED ENT HPI - General Chief complaint: Sore Throat Stated complaint: SWALLOWED CIGARETTE BUTT Time Seen by Provider: 06/10/21 12:04 Source: patient Mode of arrival: Ambulatory Limitations: No Limitations - History of Present Illness Initial comments: 36-year-old male with a past history of bronchitis, schizophrenia/bipolar disorder and protein C deficiency and history of tobacco use presents to the ER today with complaints of sore throat. Patient states that about 3 days ago while he was smoking a cigarette 7fell into his Coke. He states that he a ccidentally drank a Coke and since then he has been having sore throat. Patient reports pain with swallowing and states that he feels like his throat is swelling. He also reports associated rhinorrhea, nasal congestion, cough and wheezing. He reports no difficulty breathing/shortness of breath, chest pain, fever or chills. He denies any ill contacts or recent travel. He reports no symptoms at this time. MD complaint: sore throat -: days(s) (3) - Related Data Home Medications Medication Instructions Recorded Confirmed Last Taken FLUoxetine [Prozac] 10 mg PO QDAY 08/20/13 11/18/15 11/17/15 [place] 300 mg PO HS 08/20/13 11/18/15 11/17/15 lamoTRIgine [Lamictal] 25 mg PO HS 08/20/13 11/18/15 11/17/15 risperiDONE [Risperdal] 2 mg PO BID 08/20/13 11/18/15 11/17/15 Previous Rx's Medication Instructions Recorded Last Taken Type Ibuprofen [Motrin] 600 mg PO Q8H PRN #30 tablet 03/11/18 Unknown Rx predniSONE [Prednisone] 50 mg PO QAM #5 tablet 12/25/18 Unknown Rx Amoxicillin/Potassium Clav 1 each PO BID 10 Days #20 tablet 01/25/19 Unknown Rx [Augmentin 875-125 Tablet] Ibuprofen [Ibuprofen 800] 800 mg PO TID PRN #30 tablet 01/25/19 Unknown Rx diphenhydrAMINE [Benadryl CAP] 25 mg PO Q6HR PRN #30 capsule 01/25/19 Unknown Rx Benzocaine/Mentho [Cepacol X 1 each MM Q2H PRN #3 packet 02/08/19 Unknown Rx Strength] Fluticasone [Flonase] 1 spray NS QDAY #1 bottle 02/08/19 Unknown Rx Container,Empty [Nasal [place] 1 each MC DAILY #1 bottle 02/09/19 Unknown Rx Bottle] Fluticasone [Flonase] 1 spray NS QDAY #1 bottle 02/09/19 Unknown Rx Loratadine (Nf) [Claritin] 10 mg PO DAILY #30 tablet 02/09/19 Unknown Rx Azithromycin [Zithromax Z-BERNICE] 250 mg PO DAILY #6 tablet 02/17/19 Unknown Rx Ibuprofen [Motrin] 600 mg PO Q8H PRN #20 tablet 02/17/19 Unknown Rx Prednisone [predniSONE 10 mg 10 mg PO .TAPER #1 tab.ds.pk 02/17/19 Unknown Rx (6-Day Pack, 21 Tabs)] Furosemide [Lasix] 20 mg PO QDAY #7 tablet 04/08/21 Unknown Rx Albuterol Mdi (or & Nicu Only) 2 puff IH QID PRN #8.5 gram 06/10/21 Unknown Rx [ProAir HFA Inhaler] Amoxicillin [Amoxicillin TAB] 875 mg PO BID #14 tablet 06/10/21 Unknown Rx predniSONE [Deltasone] 40 mg PO QDAY #10 tab 06/10/21 Unknown Rx Allergies Allergy/AdvReac Type Severity Reaction Status Date / Time No Known Allergies Allergy Verified 01/25/19 18:32 ED Dental HPI - General Chief complaint: Sore Throat Stated complaint: SWALLOWED CIGARETTE BUTT Time Seen by Provider: 06/10/21 12:04 Source: patient Mode of arrival: Ambulatory Limitations: No Limitations - Related Data Home Medications Medication Instructions Recorded Confirmed Last Taken FLUoxetine [Prozac] 10 mg PO QDAY 08/20/13 11/18/15 11/17/15 [place] 300 mg PO HS 08/20/13 11/18/15 11/17/15 lamoTRIgine [Lamictal] 25 mg PO HS 08/20/13 11/18/15 11/17/15 risperiDONE [Risperdal] 2 mg PO BID 08/20/13 11/18/15 11/17/15 Previous Rx's Medication Instructions Recorded Last Taken Type Ibuprofen [Motrin] 600 mg PO Q8H PRN #30 tablet 03/11/18 Unknown Rx predniSONE [Prednisone] 50 mg PO QAM #5 tablet 12/25/18 Unknown Rx Amoxicillin/Potassium Clav 1 each PO BID 10 Days #20 tablet 01/25/19 Unknown Rx [Augmentin 875-125 Tablet] Ibuprofen [Ibuprofen 800] 800 mg PO TID PRN #30 tablet 01/25/19 Unknown Rx diphenhydrAMINE [Benadryl CAP] 25 mg PO Q6HR PRN #30 capsule 01/25/19 Unknown Rx Benzocaine/Mentho [Cepacol X 1 each MM Q2H PRN #3 packet 02/08/19 Unknown Rx Strength] Fluticasone [Flonase] 1 spray NS QDAY #1 bottle 02/08/19 Unknown Rx Container,Empty [Nasal [place] 1 each MC DAILY #1 bottle 02/09/19 Unknown Rx Bottle] Fluticasone [Flonase] 1 spray NS QDAY #1 bottle 02/09/19 Unknown Rx Loratadine (Nf) [Claritin] 10 mg PO DAILY #30 tablet 02/09/19 Unknown Rx Azithromycin [Zithromax Z-BERNICE] 250 mg PO DAILY #6 tablet 02/17/19 Unknown Rx Ibuprofen [Motrin] 600 mg PO Q8H PRN #20 tablet 02/17/19 Unknown Rx Prednisone [predniSONE 10 mg 10 mg PO .TAPER #1 tab.ds.pk 02/17/19 Unknown Rx (6-Day Pack, 21 Tabs)] Furosemide [Lasix] 20 mg PO QDAY #7 tablet 04/08/21 Unknown Rx Albuterol Mdi (or & Nicu Only) 2 puff IH QID PRN #8.5 gram 06/10/21 Unknown Rx [ProAir HFA Inhaler] Amoxicillin [Amoxicillin TAB] 875 mg PO BID #14 tablet 06/10/21 Unknown Rx predniSONE [Deltasone] 40 mg PO QDAY #10 tab 06/10/21 Unknown Rx Allergies Allergy/AdvReac Type Severity Reaction Status Date / Time No Known Allergies Allergy Verified 01/25/19 18:32 ED Review of Systems ROS: Stated complaint: SWALLOWED CIGARETTE BUTT Other details as noted in HPI Comment: All other systems reviewed and negative Constitutional: denies: chills, fever Eyes: denies: eye pain, eye discharge, vision change ENT: throat pain, congestion, other (nasal congestion ). denies: ear pain Respiratory: cough, wheezing. denies: shortness of breath, SOB with exertion, SOB at rest Cardiovascular: denies: chest pain, palpitations, dyspnea on exertion, edema, syncope, paroxysmal nocturnal dyspnea Endocrine: no symptoms reported Gastrointestinal: denies: abdominal pain, nausea, vomiting, diarrhea, constip ation, hematemesis, hematochezia Genitourinary: denies: urgency, dysuria Musculoskeletal: denies: back pain, joint swelling, arthralgia Skin: denies: rash, lesions, change in color, change in hair/nails, pruritus Neurological: denies: headache, weakness, numbness, paresthesias, confusion, abnormal gait, vertigo Psychiatric: denies: anxiety, depression, auditory hallucinations, visual hallucinations, homicidal thoughts, suicidal thoughts Hematological/Lymphatic: denies: easy bleeding, easy bruising ED Past Medical Hx - Past Medical History Previous Medical History?: Yes Hx Psychiatric Treatment: Yes (Schizophrenia, Bipolar) Additional medical history: protein C deficiency, bronchitis - Surgical History Additional Surgical History: Circumcision - Social History Smoking Status: Current Every Day Smoker (1 pack/day) Substance Use Type: Marijuana - Medications Home Medications: Home Medications Medication Instructions Recorded Confirmed Last Taken Type FLUoxetine [Prozac] 10 mg PO QDAY 08/20/13 11/18/15 11/17/15 History [place] 300 mg PO HS 08/20/13 11/18/15 11/17/15 History lamoTRIgine [Lamictal] 25 mg PO HS 08/20/13 11/18/15 11/17/15 History risperiDONE [Risperdal] 2 mg PO BID 08/20/13 11/18/15 11/17/15 History Ibuprofen [Motrin] 600 mg PO Q8H PRN #30 tablet 03/11/18 Unknown Rx predniSONE [Prednisone] 50 mg PO QAM #5 tablet 12/25/18 Unknown Rx Amoxicillin/Potassium Clav 1 each PO BID 10 Days #20 tablet 01/25/19 Unknown Rx [Augmentin 875-125 Tablet] Ibuprofen [Ibuprofen 800] 800 mg PO TID PRN #30 tablet 01/25/19 Unknown Rx diphenhydrAMINE [Benadryl CAP] 25 mg PO Q6HR PRN #30 capsule 01/25/19 Unknown Rx Benzocaine/Mentho [Cepacol X 1 each MM Q2H PRN #3 packet 02/08/19 Unknown Rx Strength] Fluticasone [Flonase] 1 spray NS QDAY #1 bottle 02/08/19 Unknown Rx Container,Empty [Nasal [place] 1 each MC DAILY #1 bottle 02/09/19 Unknown Rx Bottle] Fluticasone [Flonase] 1 spray NS QDAY #1 bottle 02/09/19 Unknown Rx Loratadine (Nf) [Claritin] 10 mg PO DAILY #30 tablet 02/09/19 Unknown Rx Azithromycin [Zithromax Z-BERNICE] 250 mg PO DAILY #6 tablet 02/17/19 Unknown Rx Ibuprofen [Motrin] 600 mg PO Q8H PRN #20 tablet 02/17/19 Unknown Rx Prednisone [predniSONE 10 mg 10 mg PO .TAPER #1 tab.ds.pk 02/17/19 Unknown Rx (6-Day Pack, 21 Tabs)] Furosemide [Lasix] 20 mg PO QDAY #7 tablet 04/08/21 Unknown Rx Albuterol Mdi (or & Nicu Only) 2 puff IH QID PRN #8.5 gram 06/10/21 Unknown Rx [ProAir HFA Inhaler] Amoxicillin [Amoxicillin TAB] 875 mg PO BID #14 tablet 06/10/21 Unknown Rx predniSONE [Deltasone] 40 mg PO QDAY #10 tab 06/10/21 Unknown Rx ED Physical Exam - General Limitations: No Limitations General appearance: alert, in no apparent distress - Head Head exam: Present: atraumatic, normocephalic, normal inspection - Eye Eye exam: Present: normal appearance, PERRL, EOMI Pupils: Present: normal accommodation - ENT ENT exam: Present: normal exam, mucous membranes moist, TM's normal bilaterally - Expanded ENT Exam Expanded Mouth exam: Absent: drooling, trismus, muffled voice, tongue normal, tongue elevation, laceration Throat exam: Positive: tonsillar erythema, tonsillomegaly, tonsillar exudate. Negative: R peritonsillar mass, L peritonsillar mass - Neck Neck exam: Present: normal inspection, full ROM. Absent: meningismus - Respiratory Respiratory exam: Present: normal lung sounds bilaterally, rhonchi (Mild rhonchi noted right lower lung field ). Absent: respiratory distress, wheezes, rales - Cardiovascular Cardiovascular Exam: Present: regular rate, normal rhythm, normal heart sounds - GI/Abdominal GI/Abdominal exam: Present: soft. Absent: distended, tenderness, guarding, r ebound - Neurological Exam Neurological exam: Present: alert, oriented X3, CN II-XII intact, normal gait - Psychiatric Psychiatric exam: Present: normal affect, normal mood - Skin Skin exam: Present: intact ED Course Vital Signs 06/10/21 10:25 Temperature 98.2 F Pulse Rate 99 H Respiratory 20 Rate Blood Pressure 120/72 [Left] O2 Sat by Pulse 100 Oximetry ED Medical Decision Making - Medical Decision Making The patient is resting comfortably and is well-appearing and in no acute distress. There is no respiratory distress, no stridor, no trismus or drooling and he is controlling his secretions. His mental status is normal. The neurological exam is normal, and there is no significant signs of dehydration. His exam is concerning more so for strep infection and bronchitis at this time. The history, exam, diagnostic testing and the patient current condition does not suggest an infectious process such retropharyngeal abscess, epiglottitis, peritonsillar abscess, Arnold's angina, mastoiditis, sepsis or any significant pathology warranting further testing, continued ED treatment, admission, consultation or any other evaluation at this time. Discussed suspected dx and treatment plan with patient His vital signs have been stable. He expressed understanding of instructions and agree with plan. The patient condition is stable and appropriate for discharge. Critical care attestation.: If time is entered above; I have spent that time in minutes in the direct care of this critically ill patient, excluding procedure time. ED Disposition Clinical Impression: Tonsillitis, URI (upper respiratory infection), Bronchitis Disposition: TO HOME OR SELFCARE Is pt being admited?: No Does the pt Need Aspirin: No Condition: Stable Instructions: Tonsillitis, Acute Bronchitis, Adult, [id number], Chronic Bronchitis (ED) Additional Instructions: Take the antibiotic, the prednisone and use albuterol inhaler as prescribed. You can take Tylenol and ibuprofen from [id number] to help with any pain. It is important that you try to stop smoking as this can be intermittent dull to your health. Recommend I drink lots of fluids, especially cold fluids can help soothe your throat. You can also use [id number] throat lozenges or sprays to help with pain. Follow-up with the primary care doctor listed on your discharge instructions. Return to the ER if your symptoms changes or worsens in any way. Prescriptions: Amoxicillin [Amoxicillin TAB] 875 mg PO BID #14 tablet predniSONE [Deltasone] 40 mg PO QDAY #10 tab Albuterol Mdi (or & Nicu Only) [ProAir HFA Inhaler] 2 puff IH QID PRN #8.5 gram PRN Reason: Shortness Of Breath Referrals: ROSS LARSON MD [Staff Physician] - 3-5 Days [facility] [Provider Group] - 3-5 Days Time of Disposition: 12:53
== END 2021-06-10 13:02 | disposition home or self-care (01) ==
LOC: ED 09:21
DX: J03.90 Acute tonsillitis, unspecified (principal); J06.9 Acute upper respiratory infection, unspecified; J40 Bronchitis, not specified as acute or chronic; F25.0 Schizoaffective disorder, bipolar type; F17.200 Nicotine dependence, unspecified, uncomplicated; F12.90 Cannabis use, unspecified, uncomplicated; Z79.899 Other long term (current) drug therapy
CPT/HCPCS: 99281

== ENCOUNTER 2022-04-14 05:16 | Emergency (ER) | payer MEDICAID ==
[2022-04-14 06:24] LABS: Basophils # (Auto) 0.1 K/mm3 (0.0-0.1); Basophils % (Auto) 0.9 % (0.0-1.8); Eosinophils # (Auto) 0.3 K/mm3 (0.0-0.4); Eosinophils % (Auto) 3.3 % (0.0-4.3); Hemoglobin 14.9 gm/dl (11.8-15.2); Lymphocytes # (Auto) 2.9 K/mm3 (1.2-5.4); Lymphocytes % (Auto) 35.7 % (13.4-35.0); Mean Corpuscular HGB Conc 33 % (32-34); Mean Corpuscular Volume 82 fl (84-94); Monocytes # (Auto) 0.6 K/mm3 (0.0-0.8); Monocytes % (Auto) 7.1 % (0.0-7.3); Platelet Count 205 K/mm3 (140-440); Red Blood Count 5.52 M/mm3 (3.65-5.03); Red Cell Distribution Width 15.5 % (13.2-15.2)
[2022-04-14 06:38] LABS: BUN/Creatinine Ratio 10; Blood Urea Nitrogen 10 mg/dL (9-20); Calcium 9.1 mg/dL (8.4-10.2); Hemolysis Index 9
--- NOTE | 2022-04-14 07:01 | Emergency Department Report ---
ED General Adult HPI - General Chief complaint: Psych Stated complaint: SUICIDAL IDEATIONS Time Seen by Provider: 04/14/22 06:06 Source: patient, EMS ( EMS documentation not available at time of chart dictation ), RN notes reviewed Mode of arrival: Ambulatory Limitations: Other (The patient is withdrawn) - History of Present Illness Initial comments: The patient was evaluated in the emergency department for symptoms described in the history of present illness. He/she was evaluated in the context of the global COVID-19 pandemic, which necessitated consideration that the patient might be at risk for infection with the virus that causes COVID-19. I nstitutional protocols and algorithms that pertain to the evaluation of patients at risk for COVID-19 are in a state of rapid change based on information released by regulatory bodies including the CDC and federal and state organizations. These policies and algorithms were followed during the patient's care in the emergency department. Please note that these policies, procedures and recommendations changed on a rapid basis. The patient is a 36-year-old gentleman who is brought to the hospital by emergency medical services. Patient reported suicidal ideation without plan and hallucination to EMS and nursing team, as per verbal report from nursing team. The patient is withdrawn with myself. He denies physical pain. To me, he denies homicidality, and intentional overdose. He denies cough and urinary symptoms. He reports that he does not want to speak about how he is feeling. He reports that he is maintained on outpatient haloperidol. He does not describe exacerbating factors relieving factors or aggravating factors. History and review of systems limited secondary to patient's unwillingness to openly discuss -: days(s) - Related Data Home Medications Medication Instructions Recorded Confirmed Last Taken FLUoxetine [Prozac] 10 mg PO QDAY 08/20/13 11/18/15 11/17/15 [place] 300 mg PO HS 08/20/13 11/18/15 11/17/15 lamoTRIgine [Lamictal] 25 mg PO HS 08/20/13 11/18/15 11/17/15 risperiDONE [Risperdal] 2 mg PO BID 08/20/13 11/18/15 11/17/15 Previous Rx's Medication Instructions Recorded Last Taken Type Ibuprofen [Motrin] 600 mg PO Q8H PRN #30 tablet 03/11/18 Unknown Rx predniSONE [Prednisone] 50 mg PO QAM #5 tablet 12/25/18 Unknown Rx Amoxicillin/Potassium Clav 1 each PO BID 10 Days #20 tablet 01/25/19 Unknown Rx [Augmentin 875-125 Tablet] Ibuprofen [Ibuprofen 800] 800 mg PO TID PRN #30 tablet 01/25/19 Unknown Rx diphenhydrAMINE [Benadryl CAP] 25 mg PO Q6HR PRN #30 capsule 01/25/19 Unknown Rx Benzocaine/Mentho [Cepacol X 1 each MM Q2H PRN #3 packet 02/08/19 Unknown Rx Strength] Fluticasone [Flonase] 1 spray NS QDAY #1 bottle 02/08/19 Unknown Rx Container,Empty [Nasal [place] 1 each MC DAILY #1 bottle 02/09/19 Unknown Rx Bottle] Fluticasone [Flonase] 1 spray NS QDAY #1 bottle 02/09/19 Unknown Rx Loratadine (Nf) [Claritin] 10 mg PO DAILY #30 tablet 02/09/19 Unknown Rx Azithromycin [Zithromax Z-BERNICE] 250 mg PO DAILY #6 tablet 02/17/19 Unknown Rx Ibuprofen [Motrin] 600 mg PO Q8H PRN #20 tablet 02/17/19 Unknown Rx Prednisone [predniSONE 10 mg 10 mg PO .TAPER #1 tab.ds.pk 02/17/19 Unknown Rx (6-Day Pack, 21 Tabs)] Furosemide [Lasix] 20 mg PO QDAY #7 tablet 04/08/21 Unknown Rx Albuterol Mdi (or & Nicu Only) 2 puff IH QID PRN #8.5 gram 06/10/21 Unknown Rx [ProAir HFA Inhaler] Amoxicillin [Amoxicillin TAB] 875 mg PO BID #14 tablet 06/10/21 Unknown Rx predniSONE [Deltasone] 40 mg PO QDAY #10 tab 06/10/21 Unknown Rx Allergies Allergy/AdvReac Type Severity Reaction Status Date / Time No Known Allergies Allergy Verified 01/25/19 18:32 ED Review of Systems ROS: Stated complaint: SUICIDAL IDEATIONS Other details as noted in HPI Constitutional: denies: fever Eyes: denies: eye discharge ENT: denies: epistaxis Respiratory: denies: cough Cardiovascular: denies: chest pain Gastrointestinal: denies: abdominal pain Genitourinary: denies: dysuria Musculoskeletal: denies: back pain Psychiatric: as per HPI, depression, suicidal thoughts. denies: homicidal thoughts ED Past Medical Hx - Past Medical History Previous Medical History?: Yes Hx Psychiatric Treatment: Yes (Schizophrenia, Bipolar) Additional medical history: protein C deficiency, bronchitis - Surgical History Past Surgical History?: Yes Additional Surgical History: Circumcision - Social History Smoking Status: Unknown if ever smoked - Medications Home Medications: Home Medications Medication Instructions Recorded Confirmed Last Taken Type FLUoxetine [Prozac] 10 mg PO QDAY 08/20/13 11/18/15 11/17/15 History [place] 300 mg PO HS 08/20/13 11/18/15 11/17/15 History lamoTRIgine [Lamictal] 25 mg PO HS 08/20/13 11/18/15 11/17/15 History risperiDONE [Risperdal] 2 mg PO BID 08/20/13 11/18/15 11/17/15 History Ibuprofen [Motrin] 600 mg PO Q8H PRN #30 tablet 03/11/18 Unknown Rx predniSONE [Prednisone] 50 mg PO QAM #5 tablet 12/25/18 Unknown Rx Amoxicillin/Potassium Clav 1 each PO BID 10 Days #20 tablet 01/25/19 Unknown Rx [Augmentin 875-125 Tablet] Ibuprofen [Ibuprofen 800] 800 mg PO TID PRN #30 tablet 01/25/19 Unknown Rx diphenhydrAMINE [Benadryl CAP] 25 mg PO Q6HR PRN #30 capsule 01/25/19 Unknown Rx Benzocaine/Mentho [Cepacol X 1 each MM Q2H PRN #3 packet 02/08/19 Unknown Rx Strength] Fluticasone [Flonase] 1 spray NS QDAY #1 bottle 02/08/19 Unknown Rx Container,Empty [Nasal [place] 1 each MC DAILY #1 bottle 02/09/19 Unknown Rx Bottle] Fluticasone [Flonase] 1 spray NS QDAY #1 bottle 02/09/19 Unknown Rx Loratadine (Nf) [Claritin] 10 mg PO DAILY #30 tablet 02/09/19 Unknown Rx Azithromycin [Zithromax Z-BERNICE] 250 mg PO DAILY #6 tablet 02/17/19 Unknown Rx Ibuprofen [Motrin] 600 mg PO Q8H PRN #20 tablet 02/17/19 Unknown Rx Prednisone [predniSONE 10 mg 10 mg PO .TAPER #1 tab.ds.pk 04/08/19 Unknown Rx (6-Day Pack, 21 Tabs)] Furosemide [Lasix] 20 mg PO QDAY #7 tablet 04/08/21 Unknown Rx Albuterol Mdi (or & Nicu Only) 2 puff IH QID PRN #8.5 gram 06/10/21 Unknown Rx [ProAir HFA Inhaler] Amoxicillin [Amoxicillin TAB] 875 mg PO BID #14 tablet 06/10/21 Unknown Rx predniSONE [Deltasone] 40 mg PO QDAY #10 tab 06/10/21 Unknown Rx ED Physical Exam - General Limitations: No Limitations General appearance: alert, in no apparent distress, obese - Head Head exam: Present: atraumatic, normocephalic - Eye Eye exam: Present: normal appearance, EOMI. Absent: nystagmus - ENT ENT exam: Present: normal exam, normal orophraynx, mucous membranes moist, normal external ear exam - Neck Neck exam: Present: normal inspection, full ROM. Absent: tenderness, meningismus - Respiratory Respiratory exam: Present: normal lung sounds bilaterally. Absent: respiratory distress, wheezes, rales, rhonchi, stridor, decreased breath sounds - Cardiovascular Cardiovascular Exam: Present: regular rate, normal rhythm, normal heart sounds. Absent: bradycardia, tachycardia, irregular rhythm, systolic murmur, diastolic murmur, rubs, gallop - GI/Abdominal GI/Abdominal exam: Present: soft. Absent: distended, tenderness, guarding, rebound, rigid, pulsatile mass - Rectal Rectal exam: Present: deferred - Extremities Exam Extremities exam: Present: normal inspection, full ROM, normal capillary refill, other (2+ pulses noted in the bilateral upper and lower extremities. There is no palpable cord. negative Homans sign. Muscular compartments are soft. The pelvis is stable.). Absent: pedal edema, calf tenderness - Back Exam Back exam: Present: normal inspection. Absent: tenderness, CVA tenderness (R), CVA tenderness (L), paraspinal tenderness, vertebral tenderness - Neurological Exam Neurological exam: Present: alert, normal gait, other (There is no facial droop. The tongue is midline. EOMI. 5 out of 5 strength in 4 extremities). Absent: motor sensory deficit - Psychiatric Psychiatric exam: Present: flat affect - Skin Skin exam: Present: warm, dry, intact, normal color. Absent: rash ED Course Vital Signs 04/14/22 05:43 Pulse Rate 90 Respiratory 16 Rate Blood Pressure 160/94 O2 Sat by Pulse 98 Oximetry - Reevaluation(s) Reevaluation #1: 04/14/22 07:19 Differential diagnosis, including but not limited to: Depression, dysthymia, suicidality, hallucinations, medical clearance for psychiatric placement Assessment and plan: 36-year-old gentleman brought to the emergency room by EMS with an initial complaint of hallucinations and suicidality. 1013 ordered, filled out and written by myself. Laboratory studies thus far are essentially unremarkable, with exception of glucose of 72. Temperature is pending. He has no meningeal signs. His physical examination is benign and unremarkable. Follow-up temperature, and repeat glucose/Accu-Chek. A COVID swab is ordered in anticipation of psychiatric placement and disposition, and a urinalysis and drug screen will also be ordered, as per typical psychiatric request and recommendations. The urinalysis and drug screen are not required to medically clear this patient for psychiatric disposition. Nevertheless, the emergency room follow along as the patient provides the urinalysis and drug screen. Presuming temperature unremarkable, and glucose improved, we would consider this patient medically suitable for psychiatric disposition. Currently awaiting temperature, and repeat glucose. Reevaluation #2: 04/14/22 07:35 Glucose is 110. Awaiting temperature. Reevaluation #3: 04/14/22 07:57 Temperature is 98.5 degrees. Glucose is 110. At this point in time, this patient does not appear to have an immediate medical contraindication to psychiatric admission, evaluation, consultation and placement. The emergency room will follow along as the patient provides his urinalysis, drug screen and COVID swab. These results will not preclude psychiatric disposition. ED Medical Decision Making - Lab Data Result diagrams: 04/14/22 06:01 04/14/22 06:01 Vital Signs 04/14/22 05:43 Pulse Rate 90 Respiratory 16 Rate Blood Pressure 160/94 O2 Sat by Pulse 98 Oximetry Lab Results 04/14/22 04/14/22 04/14/22 Range/Units 06:01 06:01 06:01 WBC 8.1 (4.5-11.0) K/mm3 RBC 5.52 H (3.65-5.03) M/mm3 Hgb 14.9 (11.8-15.2) gm/dl Hct 45.0 (35.5-45.6) % MCV 82 L (84-94) fl MCH 27 L (28-32) pg MCHC 33 (32-34) % RDW 15.5 H (13.2-15.2) % Plt Count 205 (140-440) K/mm3 Lymph % (Auto) 35.7 H (13.4-35.0) % [place] % (Auto) 7.1 (0.0-7.3) % Eos % (Auto) 3.3 (0.0-4.3) % Baso % (Auto) 0.9 (0.0-1.8) % Lymph # (Auto) 2.9 (1.2-5.4) K/mm3 [place] # (Auto) 0.6 (0.0-0.8) K/mm3 Eos # (Auto) 0.3 (0.0-0.4) K/mm3 Baso # (Auto) 0.1 (0.0-0.1) K/mm3 Seg Neutrophils % 53.0 (40.0-70.0) % Seg Neutrophils # 4.3 (1.8-7.7) K/mm3 Sodium 142 (137-145) mmol/L Potassium 4.1 (3.6-5.0) mmol/L Chloride 105.8 (98-107) mmol/L Carbon Dioxide 29 (22-30) mmol/L Anion Gap 11 mmol/L BUN 10 (9-20) mg/dL Creatinine 1.0 (0.8-1.3) mg/dL Estimated GFR > 60 ml/min BUN/Creatinine Ratio 10 % Glucose 72 L (75-100) mg/dL Calcium 9.1 (8.4-10.2) mg/dL Salicylates < 0.3 L (2.8-20.0) mg/dL Acetaminophen (10.0-30.0) ug/mL [place] (0.0-1.2) mmol/L Plasma/Serum Alcohol (0-0.07) % 04/14/22 04/14/22 04/14/22 Range/Units 06:01 Unknown Unknown WBC (4.5-11.0) K/mm3 RBC (3.65-5.03) M/mm3 Hgb (11.8-15.2) gm/dl Hct (35.5-45.6) % MCV (84-94) fl MCH (28-32) pg MCHC (32-34) % RDW (13.2-15.2) % Plt Count (140-440) K/mm3 Lymph % (Auto) (13.4-35.0) % [place] % (Auto) (0.0-7.3) % Eos % (Auto) (0.0-4.3) % Baso % (Auto) (0.0-1.8) % Lymph # (Auto) (1.2-5.4) K/mm3 [place] # (Auto) (0.0-0.8) K/mm3 Eos # (Auto) (0.0-0.4) K/mm3 Baso # (Auto) (0.0-0.1) K/mm3 Seg Neutrophils % (40.0-70.0) % Seg Neutrophils # (1.8-7.7) K/mm3 Sodium (137-145) mmol/L Potassium (3.6-5.0) mmol/L Chloride (98-107) mmol/L Carbon Dioxide (22-30) mmol/L Anion Gap mmol/L BUN (9-20) mg/dL Creatinine (0.8-1.3) mg/dL Estimated GFR ml/min BUN/Creatinine Ratio % Glucose (75-100) mg/dL Calcium (8.4-10.2) mg/dL Salicylates (2.8-20.0) mg/dL Acetaminophen 5.0 L (10.0-30.0) ug/mL [place] 0.1 (0.0-1.2) mmol/L Plasma/Serum Alcohol < 0.01 (0-0.07) % Critical care attestation.: If time is entered above; I have spent that time in minutes in the direct care of this critically ill patient, excluding procedure time. ED Disposition Clinical Impression: Medical clearance for psychiatric admission Disposition: [address] [place] [address] Is pt being admited?: No Does the pt Need Aspirin: No Condition: Good
--- NOTE | 2022-04-14 12:26 | Consultation ---
History of Present Illness - Reason for Consult Consult date: 04/14/22 Reason for consult: LEONID hoskins Requesting physician: DOMENICO COOPER - Chief Complaint Chief complaint: Hearing voices - History of Present Psychiatric Illness The patient is a 36 year old black male who appears to be acutely psychotic and disorganized. He states that he is hearing voices. He has a PMH of schizophrenia, diagnosed in 2006. He is currently homeless. He states that the voices say "trinidad master" and "use your trinidad blade". The patient reports that he was inpatient at a mental hospital over 10 years ago and received outpatient services at [facility]. He currently is employed , denies legal problems, substance abuse and access to fire arms. Patient denies a history of abuse. He states that Haldol tablet worked for him in the past. PAST PSYCHIATRIC HISTORY: Diagnoses: Schizophrenia (2006) Suicide attempts or Self-harm behavior: 1 suicide attempt years ago Prior psychiatric hospitalizations: 10 + years ago Substance Abuse history: denies Previous psychiatric medications tried: Haldol, Risperidone Outpatient treatment: [facility] PAST MEDICAL HISTORY: None Family Psychiatric History None reported or documented SOCIAL HISTORY Marital Status: single Living Arrangements: homeless Employment Status: employed Access to guns/weapons: denies Education: high school History of Abuse: denies Legal History: denies ROS: Constitutional: Negative for weight loss ENT: Negative for stridor Respiratory: Negative for cough or hemoptysis All other systems reviewed and are negative MENTAL STATUS General Appearance and Behavior: age appropriate, good eye contact, cooperative with questioning and polite Cooperation: Cooperative Psychomotor Behavior: within normal limits Mood: OK Affect and affective range: Congruent with stated mood Thought Process: Fluent but illogical Thought Content: Positive for auditory hallucinations Speech: Normal volume and Regular rate and rhythm Intellectual Functioning Average Suicidal Ideation: Denies SI Homicidal Ideation: Denies HI Impulse Control: intact Insight and Judgment: fair insight and judgment Memory: Normal Attention: Normal Orientation: alert and oriented RECOMMENDATIONS MEDICATIONS: Haldol 5mg bid for psychosis Risks, benefits and alternatives of medications discussed with the patient, questions answered and consent obtained from patient. PSYCHOTHERAPY: Supportive psychotherapy provided MEDICAL: Per primary team FABRIC LAY OUT WORKER: No DISPOSITION: Acute inpatient psychiatric hospitalization when medically stable LEGAL STATUS: Continue 1013 FOLLOW-UP: Will follow The patient agreed on the treatment plan, understood the risk, benefit, alternative treatment, potential consequence of no treatment, and gave informed consent. I have reviewed this treatment plan, including potential risks and benefits of medications, with the patient and/or family members and relevant hospital providers. Please contact with any questions and/or concerns. Medications and Allergies Allergies Allergy/AdvReac Type Severity Reaction Status Date / Time No Known Allergies Allergy Verified 01/25/19 18:32 Home Medications Medication Instructions Recorded Confirmed Last Taken Type FLUoxetine [Prozac] 10 mg PO QDAY 08/20/13 11/18/15 11/17/15 History [place] Carbonate 300 mg PO HS 08/20/13 11/18/15 11/17/15 History lamoTRIgine [Lamictal] 25 mg PO HS 08/20/13 11/18/15 11/17/15 History risperiDONE [Risperdal] 2 mg PO BID 08/20/13 11/18/15 11/17/15 History Ibuprofen [Motrin] 600 mg PO Q8H PRN #30 tablet 03/11/18 Unknown Rx predniSONE [Prednisone] 50 mg PO QAM #5 tablet 12/25/18 Unknown Rx Amoxicillin/Potassium Clav 1 each PO BID 10 Days #20 tablet 01/25/19 Unknown Rx [Augmentin 875-125 Tablet] Ibuprofen [Ibuprofen 800] 800 mg PO TID PRN #30 tablet 01/25/19 Unknown Rx diphenhydrAMINE [Benadryl CAP] 25 mg PO Q6HR PRN #30 capsule 01/25/19 Unknown Rx Benzocaine/Mentho [Cepacol X 1 each MM Q2H PRN #3 packet 02/08/19 Unknown Rx Strength] Fluticasone [Flonase] 1 spray NS QDAY #1 bottle 02/08/19 Unknown Rx Container,Empty [Nasal [place] 1 each MC DAILY #1 bottle 02/09/19 Unknown Rx Bottle] Fluticasone [Flonase] 1 spray NS QDAY #1 bottle 02/09/19 Unknown Rx Loratadine (Nf) [Claritin] 10 mg PO DAILY #30 tablet 02/09/19 Unknown Rx Azithromycin [Zithromax Z-BERNICE] 250 mg PO DAILY #6 tablet 02/17/19 Unknown Rx Ibuprofen [Motrin] 600 mg PO Q8H PRN #20 tablet 02/17/19 Unknown Rx Prednisone [predniSONE 10 mg 10 mg PO .TAPER #1 tab.ds.pk 02/17/19 Unknown Rx (6-Day Pack, 21 Tabs)] Furosemide [Lasix] 20 mg PO QDAY #7 tablet 04/08/21 Unknown Rx Albuterol Mdi (or & Nicu Only) 2 puff IH QID PRN #8.5 gram 06/10/21 Unknown Rx [ProAir HFA Inhaler] Amoxicillin [Amoxicillin TAB] 875 mg PO BID #14 tablet 06/10/21 Unknown Rx predniSONE [Deltasone] 40 mg PO QDAY #10 tab 06/10/21 Unknown Rx Mental Status Exam - Vital signs Last Vital Signs Temp 98.5 F 04/14/22 08:06 Pulse 69 04/14/22 08:06 Resp 17 04/14/22 08:06 BP 146/79 04/14/22 08:06 Pulse Ox 100 04/14/22 08:06 Results Result Diagrams: 04/14/22 06:01 04/14/22 06:01 Abnormal lab results 04/14/22 04/14/22 04/14/22 Range/Units 06:01 06:01 06:01 RBC 5.52 H (3.65-5.03) M/mm3 MCV 82 L (84-94) fl MCH 27 L (28-32) pg RDW 15.5 H (13.2-15.2) % Lymph % (Auto) 35.7 H (13.4-35.0) % Glucose 72 L (75-100) mg/dL Salicylates < 0.3 L (2.8-20.0) mg/dL Acetaminophen (10.0-30.0) ug/mL 04/14/22 Range/Units 06:01 RBC (3.65-5.03) M/mm3 MCV (84-94) fl MCH (28-32) pg RDW (13.2-15.2) % Lymph % (Auto) (13.4-35.0) % Glucose (75-100) mg/dL Salicylates (2.8-20.0) mg/dL Acetaminophen 5.0 L (10.0-30.0) ug/mL All other labs normal. Assessment and Plan - Psychiatric problem (1) Paranoid schizophrenia Current Visit: Yes Status: Acute
[2022-04-14] MEDS ORDERED: ZIPRASIDONE MESYLATE 20 MG VIAL IM PRN (14:00)
[2022-04-14] MEDS: HALOPERIDOL 5 MG TAB PO SCH (22:00)
[2022-04-15 01:00] LABS: Bilirubin,Urine NEG (Negative); Blood,Urine NEG (Negative); Color,Urine Straw (Yellow); Mucus,Urine FEW /HPF; Protein,Urine <15 mg/dL mg/dL (Negative); Urobilinogen,Urine < 2.0 mg/dL (<2.0); WBC,Urine < 1.0 /HPF (0.0-6.0)
[2022-04-15 01:11] LABS: Amphetamine Screen,Urine PRESUMPTIVE NEGATIVE; Benzodiazepines Screen,Urine PRESUMPTIVE NEGATIVE; Cannabinoid Screen,Urine PRESUMPTIVE NEGATIVE; Cocaine Screen,Urine PRESUMPTIVE NEGATIVE; Methadone Screen,Urine PRESUMPTIVE NEGATIVE; Opiate Screen,Urine PRESUMPTIVE NEGATIVE
[2022-04-15] MEDS: HALOPERIDOL 5 MG TAB PO SCH ×2 (09:51→22:24)
--- NOTE | 2022-04-15 11:40 | Event Note ---
Date: 04/15/22 Patient is a 36 years old male admitted to the emergency room for acute psychosis. No overnight issues. Vital signs stable. Labs reviewed and is unremarkable. Waiting for inpatient psychiatric placement.
--- NOTE | 2022-04-15 13:22 | Progress Note ---
Subjective - Reason for Consult Reason for consult: Psychotic - Chief Complaint Chief complaint: Patient continues to be psychotic, disorganized, paranoid and responding to auditory hallucinations. He is compliant with medications Plan: Continue current plan to admit patient Mental Status Exam - Vital signs Last Vital Signs Temp 98.3 F 04/15/22 09:00 Pulse 67 04/15/22 09:00 Resp 18 04/15/22 09:00 BP 106/68 04/15/22 09:00 Pulse Ox 99 04/15/22 09:00 Assessment and Plan - Patient Problems (1) Paranoid schizophrenia Current Visit: Yes Status: Acute
[2022-04-16 09:35] VITALS: BP 159/91
--- NOTE | 2022-04-16 09:49 | Progress Note ---
Subjective - Reason for Consult Consult date: 04/16/22 Reason for consult: MHE - Chief Complaint Chief complaint: Patient seen with Nurse at bedside. He is alert, pleasant and calm. Patient describes a good and stable mood, denies being depressed or excessively nervous. Patient eats and sleeps well. Patient denies panic attacks, recurrent nightmares or flashbacks. Patient denies symptoms suggestive of OCD or PTSD. Patient denies hallucinations, paranoia, thought interference and no features suggestive of hypomania or bruce. He completely denies suicidal or homicidal thoughts. He wants to be discharged home on his current medications and continue his treatment in the outpatient. Mental Status Exam - Vital signs Last Vital Signs Temp 98.9 F 04/15/22 19:42 Pulse 92 H 04/16/22 09:34 Resp 18 04/16/22 09:36 BP 159/91 04/16/22 09:34 Pulse Ox 100 04/16/22 09:36 - Exam Orientation: time, place, person Affect: normal Mood: appropriate Thought Process: Intact Perceptions: none Speech: normal rate and pattern Concentration: focused Motor activity: normal Level of consciousness: alert Memory: Intact Sleep Symptoms: None Interaction: cooperative Mini mental status exam(if necessary): 24-30 Assessment and Plan - Patient Problems (1) Paranoid schizophrenia Current Visit: Yes Status: Acute Plan to address problem: Discharge on current meds. Discontinue 1013 Provide Resources including Out-patient appointment
--- NOTE | 2022-04-16 10:16 | Event Note ---
Date: 04/16/22 No events reported overnight by nursing team. Vital signs unremarkable. This patient was medically cleared by me on his initial ER evaluation. The psychiatric team have advised that he Nolder meet criteria for 1013 hold or involuntary confinement. They have written this patient for appropriate outpatient discharge prescriptions. He will therefore be discharged with outpatient follow-up. Vital Signs 04/14/22 04/14/22 04/14/22 05:43 08:06 20:27 Temperature 98.5 F 97.4 F L Pulse Rate 90 69 65 Respiratory 16 17 16 Rate Blood Pressure 160/94 Blood Pressure 146/79 139/69 [Left] O2 Sat by Pulse 98 100 98 Oximetry 04/14/22 04/15/22 04/15/22 21:00 07:00 09:00 Temperature 98.3 F 98.3 F Pulse Rate 67 67 Respiratory 18 18 Rate Blood Pressure Blood Pressure 106/68 106/68 [Left] O2 Sat by Pulse 100 99 99 Oximetry 04/15/22 04/16/22 04/16/22 19:42 06:11 09:34 Temperature 98.9 F Pulse Rate 63 92 H Respiratory 16 18 Rate Blood Pressure Blood Pressure 98/60 159/91 [Left] O2 Sat by Pulse 96 98 99 Oximetry 04/16/22 09:36 Temperature Pulse Rate Respiratory 18 Rate Blood Pressure Blood Pressure [Left] O2 Sat by Pulse 100 Oximetry
== END 2022-04-16 11:47 | disposition home or self-care (01) ==
LOC: ED 05:16
DX: Z13.30 Encounter for screening examination for mental health and behavioral disorders, unspecified (principal); F31.9 Bipolar disorder, unspecified; Z79.899 Other long term (current) drug therapy; Z20.822 Contact with and (suspected) exposure to COVID-19
CPT/HCPCS: 36415; 80048; 80178; 80307; 81001; 85025; 99284; U0003; 80320; G0480